=== PATIENT | female | born 1995 | race Caucasian/White ===

== ENCOUNTER 2016-04-01 20:38 | Observation (INO) ==
[2016-04-01 21:13] LABS: Bilirubin,Urine Negative (Negative); Blood,Urine Small (Negative); Clarity,Urine Clear (Clear); Color,Urine Yellow (Yellow); Glucose,Urine (UA) Normal (Normal); Ketones,Urine Negative (Negative); Leukocyte Esterase,Urine Trace (Negative); Nitrite,Urine Negative (Negative); Protein,Urine Trace mg/dL (Neg-Trace); Specific Gravity,Urine 1.024 (1.010-1.025); Urobilinogen,Urine Normal (Normal)
[2016-04-01 21:16] LABS: Bacteria,Urine Few per hpf (None-Few); Hyaline Casts,Urine None Seen per lpf (None-Few); Squamous Epithelial Cell,Urine Many per lpf (None-Few)
--- NOTE | 2016-04-01 21:19 | OB/GYN Progress Note ---
Date of Encounter: 04/01/16 Time of Encounter: 21:17 - Assessment and Plan (1) Low back pain during in second trimester Current Visit: Yes Status: Acute History and exam suggestive of musculoskeletal origin low back pain. Conservative treatment at this time including OMT. Lumbar roll, myofascial, and muscle energy. Improvement of symptoms and improved range of motion. Recommend muscle exercises and stretches. Topical pain relievers; to avoid otc with aspirin and nsaids. Heat/warm pads. (2) 26 weeks gestation of Current Visit: Yes Status: Acute Patient is 26.2 weeks gestation with no complications. Urine negative for UTI. Vitals stable. No contractions. No active labor. Subjective - Subjective Principal diagnosis: lower abd pain and low back pain Interval history: Ms. Medel is a 20 year old female at 26.2 weeks with no additional past medical or surgical history who presents with complaint of constant achy 10 /10 RLQ pain that radiates to her lower back that started last evening. Patient reports she was walking up stairs when she suddenly developed lower abdominal pain and back pain resulting in her unable to stand up straight. She laid down to see if it would help but was unable to lay down flat. Patient also reports some burning from her lower abdomen particularly on the right, down the inside of her right thigh and tingling down to her toes. Patient does report increased urination last night and one episode of urinary incontinence without sensation of needing to urinate. Patient reports urine has been normal color and smell. Denies fecal incontinence. Denies fevers, chills, sweats, nausea, vomiting, chest pain, shortness of breath, changes in bowels, and weakness. Reports some vaginal mucus discharge, but also reports recent sexual intercourse. Denies vaginal bleeding or significant fluid. Denies contractions. Reports occasional movement. Antepartum ROS: movement normal, no loss of fluid, no vaginal bleeding, no contractions Objective - Vital Signs Vital Signs: Intake and Output 04/01/16 04/01/16 04/01/16 07:59 15:59 23:59 Other: Weight 98.883 kg Patient Weight 04/01/16 23:59 Weight 98.883 kg - Exam FHR: auscultation normal Abdomen: Present: normal appearance, soft, gravid, other (striae) Comments: Neuro: Alert and oriented x3, no acute distress, CN 2-12 grossly intact, muscle strength normal bilaterally, normal sensation bilaterally, dtr patella and achilles 2/4 bilaterally, babinski negative, positive straight leg raise on R at 30 degrees, normal straight leg raise on L. Heart: Regular rate and rhythm no murmurs Lungs: clear to auscultation bilaterally no wheezes rhonchi or rales Abdomen: soft, nontender, gravidad, striae noted bowel sounds normal
== END 2016-04-01 22:27 | disposition home or self-care (01) ==
LOC: 1NENULAB
PROVIDERS: ADMIT Obstetrics & Gynecology; ATTEND Obstetrics & Gynecology

== ENCOUNTER 2016-04-22 16:19 | Observation (INO) ==
--- NOTE | 2016-04-22 16:42 | OB/GYN Progress Note ---
Date of Encounter: 04/22/16 Time of Encounter: 16:40 - Assessment and Plan (1) 29 weeks gestation of Status: Acute Patient is 29 weeks gestation. Reports no loss of fluids and no contracts at this time. Cervix is closed and thick. 1. monitoring- reactive NST (2) Vaginal discharge during Status: Acute Patient reports vaginal discharge with foul smell. Speculum exam showed white creamy discharge. 1. Vaginosis panel pending 2. Urine analysis pending Anticipate discharge home with treatment if infection identified. Qualifiers: Trimester: second trimester Qualified Code(s): O26.892 - Other specified related conditions, second trimester; N89.8 - Other specified noninflammatory disorders of vagina (3) Low back pain during in second trimester Status: Acute Patient with continued low back pain, worse in the last 24 hours. She has been seen here previously with low back pain. FFN collected and pending. SVE closed and thick. Plan for discharge home with PTL precautions. Subjective - Subjective Principal diagnosis: 29 weeks gestation with pelvic pain and foul smelling discharge Interval history: Ms Medel is a 20yo female at 29 weeks gestation who presents complaining of pelvic pain and vaginal discharge. Patient reports that she has had hip and low back pain for weeks but that it got significantly worse last night and she was unable to sit up or turn over in bed because of the pain. She reports that pain is constant and worse with sitting up or moving. Patient also reports yellow vaginal discharge that she has had for a while but just today she noticed a foul smelling odor. She reports that she was diagnosed with a yeast infection a week ago and she took to doses of the prescribed cream before stopping because her itching stopped. She reports good movement. Reports constant pain but denies any contractions or fluid loss. She also repors cough, runny nose, frequent headaches, SOB with walking and constipation. Patient denies fever/chills, vision changes, chest pain or palpitations, dysuria or increased urinary frequency. On exam, patient is awake and alert. She has an old wound from an infected belly button ring that was previously MRSA positive - no active drainage. Speculum exam done and thick , creamy discharge noted. Patient reports no complications with previous . Baby was a full term , vaginal delivery. I examined this patient and my medical decision-making was reviewed with the HOCKEY SCOUT/PA/Advanced Practice Nurse/Resident Physician. I agree with the documented findings, disposition and treatment plan as described except to the extent set forth below. Antepartum ROS: movement normal, no loss of fluid, no vaginal bleeding, no contractions Objective - Exam FHR: category 1 FHR comments: NST reactive Auscultation: bilateral: normal Abdomen: Present: soft, gravid Uterus: Present: normal. Absent: tenderness Cervical dilation: closed Cervix effacement: thick Comments: Old wound from infected belly button ring, formerly MRSA positive. No erythema or active drainage.
[2016-04-22 16:58] LABS: Bilirubin,Urine Negative (Negative); Blood,Urine Negative (Negative); Clarity,Urine Clear (Clear); Color,Urine Yellow (Yellow); Glucose,Urine (UA) 100 mg/dL (Normal); Ketones,Urine Negative (Negative); Leukocyte Esterase,Urine Small (Negative); Nitrite,Urine Negative (Negative); PH,Urine 7.5 pH Units (5.0-8.0); Protein,Urine 30 mg/dL (Neg-Trace); Specific Gravity,Urine 1.025 (1.010-1.025); Urobilinogen,Urine Normal (Normal)
[2016-04-22 17:02] LABS: Bacteria,Urine Moderate per hpf (None-Few); Hyaline Casts,Urine None Seen per lpf (None-Few); Squamous Epithelial Cell,Urine Many per lpf (None-Few); WBC,Urine 15-30 per hpf (0-3)
[2016-04-22 17:44] LABS: Candida DNA ***DETECTED*** (Not Detect); Gardnerella DNA Not Detected (Not Detect); Trichomonas DNA Not Detected (Not Detect)
== END 2016-04-22 18:24 | disposition home or self-care (01) ==
LOC: 1NENULAB
PROVIDERS: ADMIT Obstetrics & Gynecology; ATTEND Obstetrics & Gynecology

== ENCOUNTER 2016-05-08 09:53 | Observation (INO) ==
[2016-05-08 10:43] LABS: Bilirubin,Urine Negative (Negative); Blood,Urine Large (Negative); Clarity,Urine Cloudy (Clear); Color,Urine Dark Yellow (Yellow); Glucose,Urine (UA) Normal (Normal); Ketones,Urine Negative (Negative); Leukocyte Esterase,Urine Moderate (Negative); Nitrite,Urine Negative (Negative); PH,Urine 5.5 pH Units (5.0-8.0); Protein,Urine 30 mg/dL (Neg-Trace); Specific Gravity,Urine > 1.030 (1.010-1.025); Urobilinogen,Urine Normal (Normal)
[2016-05-08 10:45] LABS: Hyaline Casts,Urine None Seen per lpf (None-Few); Squamous Epithelial Cell,Urine Many per lpf (None-Few); WBC,Urine 15-30 per hpf (0-3)
[2016-05-08 11:03] LABS: Bacteria,Urine Few per hpf (None-Few); Calcium Oxalate Crystals,Urine Present
--- NOTE | 2016-05-08 13:12 | OB/GYN Progress Note ---
Date of Encounter: 05/08/16 Time of Encounter: 13:10 - Assessment and Plan (1) 32 weeks gestation of Current Visit: Yes Status: Acute (2) NST (non-stress test) reactive Current Visit: Yes Status: Acute (3) Urinary frequency Current Visit: Yes Status: Acute Await culture results. (4) Vaginal discharge during Current Visit: No Status: Acute Pt denies s/sx infection or loss of amniotic fluid. Suspect physiologic discharge. Discharge home. Qualifiers: Trimester: third trimester Qualified Code(s): O26.893 - Other specified related conditions, third trimester; N89.8 - Other specified noninflammatory disorders of vagina Subjective - Subjective Interval history: 20 year-old presenting at 32 weeks with c/o tachycardia and sweating after drinking glucola for her 3 hour GTT. She also reports urinary frequency and thick vaginal discharge. She denies itching, burning, bleeding, or loss of fluid. Good FM. No contractions. Antepartum ROS: movement normal, no loss of fluid, no vaginal bleeding, no contractions Objective - Vital Signs Vital Signs: Intake and Output 05/07/16 05/08/16 05/08/16 23:59 07:59 15:59 Other: Weight 101.1 kg Patient Weight 05/08/16 23:59 Weight 101.1 kg - Exam FHR: category 1 FHR comments: 135BPM reactive NST Auscultation: bilateral: normal Abdomen: Present: soft, gravid. Absent: tenderness Cervical dilation: closed/thick/high Comments: Pulse normal in L&D triage. - Labs Labs: Abnormal lab results Urine Clarity Cloudy (Clear) A 05/08/16 10:30 Ur Specific [place] > 1.030 (1.010-1.025) H 05/08/16 10:30 Urine Protein 30 mg/dL (Neg-Trace) H 05/08/16 10:30 Urine Blood Large (Negative) H 05/08/16 10:30 Ur Leukocyte Esterase Moderate (Negative) H 05/08/16 10:30 Urine Microscopic RBC 5-15 per hpf (0-3) H 05/08/16 10:30 Urine Microscopic WBC 15-30 per hpf (0-3) H 05/08/16 10:30 Ur Squamous Epith Cells Many per lpf (None-Few) H 05/08/16 10:30 Ur Culture Indicated? YES (NO) A 05/08/16 10:30
== END 2016-05-08 12:10 | disposition home or self-care (01) ==
LOC: 1NENULAB
PROVIDERS: ADMIT Obstetrics & Gynecology; ATTEND Obstetrics & Gynecology

== ENCOUNTER 2016-06-09 12:02 | Observation (INO) ==
[2016-06-09 12:56] LABS: Bilirubin,Urine Negative (Negative); Blood,Urine Negative (Negative); Clarity,Urine Cloudy (Clear); Color,Urine Dark Yellow (Yellow); Glucose,Urine (UA) Normal (Normal); Ketones,Urine Negative (Negative); Leukocyte Esterase,Urine Moderate (Negative); Nitrite,Urine Negative (Negative); Protein,Urine Trace mg/dL (Neg-Trace); Urobilinogen,Urine Normal (Normal)
[2016-06-09 12:57] LABS: Bacteria,Urine Few per hpf (None-Few); Hyaline Casts,Urine None Seen per lpf (None-Few); Squamous Epithelial Cell,Urine Many per lpf (None-Few); WBC,Urine 15-30 per hpf (0-3)
[2016-06-09 13:19] LABS: Calcium Oxalate Crystals,Urine Present
--- NOTE | 2016-06-09 14:00 | OB/GYN Progress Note ---
Date of Encounter: 06/09/16 Time of Encounter: 13:53 - Assessment and Plan (1) Nausea & vomiting Current Visit: Yes Status: Acute Pt has zantac and zofran rx at home and is able to tolerate PO fluids while in triage. She reports dizziness improved with hydration. Qualifiers: Vomiting type: unspecified Vomiting Intractability: non-intractable Qualified Code(s): R11.2 - Nausea with vomiting, unspecified (2) Cramping affecting , antepartum Current Visit: Yes Status: Acute ft/50/-2, one contraction noted on toco. Discharge home with precautions. (3) 36 weeks gestation of Current Visit: Yes Status: Acute (4) NST (non-stress test) reactive Current Visit: No Status: Acute Subjective - Subjective Interval history: 20 year-old presenting at 36w1d via ambulance for nausea/vomiting, headache , dizziness, cramping, and pressure. She denies LOF, VB, or regular contractions. Good FM. She reports she has had a headache for the last two months that has not changed. She has had the nausea and vomiting for the last 2 days but reports that she thinks it may be due to her heartburn since she ran out of her Zantac a week ago and hasn't gotten her refill yet. She reports vomiting twice today. She does have zofran at home. Antepartum ROS: movement normal, contractions, no loss of fluid, no vaginal bleeding Objective - Vital Signs Vital Signs: Intake and Output 06/08/16 06/09/16 06/09/16 23:59 07:59 15:59 Other: Weight 100.8 kg Patient Weight 06/09/16 23:59 Weight 100.8 kg - Exam FHR: category 1 FHR comments: NST reactive Auscultation: bilateral: normal Abdomen: Present: soft, gravid. Absent: tenderness Uterus: Absent: tenderness Cervical dilation: FT/50/-2 - Labs Labs: Abnormal lab results Urine Clarity Cloudy (Clear) A 06/09/16 12:40 Ur Leukocyte Esterase Moderate (Negative) H 06/09/16 12:40 Urine Microscopic RBC 5-15 per hpf (0-3) H 06/09/16 12:40 Urine Microscopic WBC 15-30 per hpf (0-3) H 06/09/16 12:40 Ur Squamous Epith Cells Many per lpf (None-Few) H 06/09/16 12:40 Ur Culture Indicated? YES (NO) A 06/09/16 12:40
== END 2016-06-09 14:10 | disposition home or self-care (01) ==
LOC: 1NENULAB
PROVIDERS: ADMIT Obstetrics & Gynecology; ATTEND Obstetrics & Gynecology

== ENCOUNTER 2016-06-18 22:15 | Observation (INO) ==
--- NOTE | 2016-06-18 22:37 | OB/GYN Progress Note ---
Date of Encounter: 06/19/16 Time of Encounter: 22:35 - Assessment and Plan (1) 37 weeks gestation of Current Visit: Yes Status: Acute (2) Low back pain during in second trimester Current Visit: No Status: Acute (3) Vaginal discharge during Current Visit: No Status: Acute She reports week of intermittent gushes of clear fluid associated with suprapubic pressure and vaginal discharge. Furthermore, patient reports that she has had some spotting when she wipe after urinating. Symptoms may be due to urinary tract infection versus BV versus fungal infection. Patient has reassuring NST with heart rates in the 130s. Fritz Braxton. Discharge likely related to recent vaginal intercourse. Vaginosis panel negative. Urinary analysis culture pending will contact patient with results and abx if indicated. Plan discharge home. Return precautions given. Patient expressed understanding. Qualifiers: Trimester: third trimester Qualified Code(s): O26.893 - Other specified related conditions, third trimester; N89.8 - Other specified noninflammatory disorders of vagina (4) NST (non-stress test) reactive Current Visit: No Status: Acute With heart rate in the 130s (5) Nausea & vomiting Current Visit: No Status: Acute Continue with vitamin B6 and Zofran at home. Qualifiers: Vomiting type: unspecified Vomiting Intractability: non-intractable Qualified Code(s): R11.2 - Nausea with vomiting, unspecified Subjective - Subjective Principal diagnosis: vaginal discharge Interval history: Patient is a 20-year-old female at 37 weeks and 3 days with a past medical history of attention deficit hyperactivity disorder, sleep disturbance, depression, headaches, history of MRSA infection, gastroesophageal reflux, who presents today for vaginal discharge. Patient describes that over the past week she has had intermittent fluid leakage into her underwear described as clear fluid "possibly urine "however today she had a large gush of fluid approximately 1 hour prior to arrival associated with contractions and nausea. Patient describes that her last meal was proximally 1 hour prior to arrival she also states that she has had decreased movements however she has been feeling baby all day but she has not been keeping counts so is unsure if she is having more than 10 and hour. Patient was last seen by Dr. Perez on 05/12/16 for nausea and vomiting and Fritz Braxton contractions was prescribed vitamin B6 the patient has been taking this for nausea with minimal relief of symptoms. Patient admits: Mid to low back pain consistent with her prior contractions from previous delivery patient states that she had "back labor " she has been experiencing intermittent cramping that wraps around her belly described as low squeezing pressure associated with pelvic pressure/suprapubic pressure and vaginal discharge. Last sexual intercourse was last night. Patient is scheduled for induction on 06/29/16 at 8 AM. Patient denies: Fever, chills, sweats, abdominal pain or tenderness, abdominal trauma, STI, PORTFOLIO ANALYST history: Last Pap smear in 12/09/2010 was negative. No history of abnormal Paps. Menarche age of onset 12. Last menstrual period beginning of September 2015 Total pregnancies to Total living children 1 #, 39 weeks, male, 7 lbs. 13 oz. spontaneous vaginal delivery complications. Medications: Patient is currently taking ranitidine and vitamin B 6. No known drug allergies. 12/23/15 Labs: Blood type a antibody negative GBS positive Rubella IgG antibody positive Hepatitis B surface antigen nonreactive Treponema pallidum negative Varicella IgG antibody positive Cystic fibrosis panel was negative HIV negative Antepartum ROS: loss of fluid, movement normal, contractions, no vaginal bleeding Objective - Exam FHR: auscultation normal FHR comments: 130 Auscultation: bilateral: normal Abdomen: Present: normal appearance, soft, gravid Uterus: Present: normal Cervical dilation: 3 Cervix effacement: 70 Comments: Per nurse's exam
[2016-06-18 23:30] LABS: Bilirubin,Urine Negative (Negative); Blood,Urine Negative (Negative); Clarity,Urine Cloudy (Clear); Color,Urine Yellow (Yellow); Glucose,Urine (UA) Normal (Normal); Ketones,Urine Trace mg/dL (Negative); Leukocyte Esterase,Urine Small (Negative); Nitrite,Urine Negative (Negative); Protein,Urine Negative (Neg-Trace); Specific Gravity,Urine 1.015 (1.010-1.025); Urobilinogen,Urine Normal (Normal)
[2016-06-18 23:32] LABS: Bacteria,Urine None Seen per hpf (None-Few); Hyaline Casts,Urine None Seen per lpf (None-Few); RBC,Urine 0-3 per hpf (0-3); Squamous Epithelial Cell,Urine Many per lpf (None-Few)
[2016-06-18 23:37] LABS: Candida DNA Not Detected (Not Detect); Gardnerella DNA Not Detected (Not Detect); Trichomonas DNA Not Detected (Not Detect)
--- NOTE | 2016-06-19 00:37 | Discharge Summary ---
Date of Encounter: 06/19/16 Time of Encounter: 00:40 - Discharge Diagnosis (1) 37 weeks gestation of Priority: Primary Status: Acute (2) Low back pain during in second trimester Priority: Secondary Status: Acute (3) Vaginal discharge during Priority: Primary Status: Acute Qualifiers: Trimester: third trimester Qualified Code(s): O26.893 - Other specified related conditions, third trimester; N89.8 - Other specified noninflammatory disorders of vagina (4) NST (non-stress test) reactive Priority: Secondary Status: Acute (5) Nausea & vomiting Priority: Secondary Status: Acute Qualifiers: Vomiting type: unspecified Vomiting Intractability: non-intractable Qualified Code(s): R11.2 - Nausea with vomiting, unspecified - Discharge Medications Home Medications: Caplet 1 tab PO DAILY 04/22/16 [History] Ranitidine HCl [Acid Commercial Real Estate Assistant] 150 mg PO PRN PRN 04/22/16 [History] Allergies/Adverse Reactions: Allergies No Known Allergies Allergy (Verified 05/08/16 10:31) Data Procedures and tests throughout hospitalization: Laboratory Tests 06/18/16 06/18/16 22:15 23:20 Urine Color Yellow Urine Clarity Cloudy A Urine pH 7.0 Ur Specific [place] 1.015 Urine Protein Negative Urine Glucose (UA) Normal Urine Ketones Trace H Urine Blood Negative Urine Nitrite Negative Urine Bilirubin Negative Urine Urobilinogen Normal Ur Leukocyte Esterase Small H Urine Microscopic RBC 0-3 Urine Microscopic WBC 5-15 H Ur Squamous Epith Cells Many H Urine Bacteria None Seen Hyaline Casts None Seen Urine Yeast Test Not Performed Ur Culture Indicated? YES A Jenelle species DNA Not Detected Gardnerella DNA Probe Not Detected Trichomonas DNA Probe Not Detected Labs on day of discharge: Labs from last 24 hours 06/18/16 06/18/16 23:20 22:15 Urine Color Yellow Urine Clarity Cloudy A Urine pH 7.0 Ur Specific [place] 1.015 Urine Protein Negative Urine Glucose (UA) Normal Urine Ketones Trace H Urine Blood Negative Urine Nitrite Negative Urine Bilirubin Negative Urine Urobilinogen Normal Ur Leukocyte Esterase Small H Urine Microscopic RBC 0-3 Urine Microscopic WBC 5-15 H Ur Squamous Epith Cells Many H Urine Bacteria None Seen Hyaline Casts None Seen Urine Yeast Test Not Performed Ur Culture Indicated? YES A Jenelle species DNA Not Detected Gardnerella DNA Probe Not Detected Trichomonas DNA Probe Not Detected Date of admission: 06/18/16 22:15 Primary care physician: Ana Discharging clinician: Adriano Morse Anticipated date of discharge: 06/19/16 - Patient Status Disposition: Home, Self-Care - Discharge Instructions Additional Instructions: LABOR AND DELIVERY DISCHARGE INSTRUCTIONS Signs and Symptoms to be Reported to your Doctor Immediately: * Sudden gush, continuous or intermittent lead of fluid from vagina (note the time of gush and color of fluid) * Onset of bright red vaginal bleeding with or without pain (if you had a vaginal exam during this visit you may notice some dark red spotting. This is normal.) * Contractions that are 5 minutes apart (from the beginning of one contraction to the beginning of the next) and last 45-60 seonds; contractions that you can no longer walk, talk or laugh through. * A change in the baby's activity. This could be an increase or decrease in activity. * Severe headache which does not go away with tylenol. * Sudden swelling in the face, hands, arms and/or legs. * Upper abdominal pain - sometimes associated with heartburn or nausea and is not relieved by Maalox, Mylanta or Tums. * Kick Counts __ One hour after a meal, lay down on one side in a quiet place. Count the number of time the baby moves during an hour. If less than 6 movements, notify your physician Diet: *Force fluids, 8 to 10 tall glasses of fluid per day - may include popsicles and jello *Limit caffeine - this includes chocolate, coffee, tea, any soft drink containing such as all annamarie, Héctor Yellow and Mountain Dew Hospital Course CLOTH CUTTING MACHINE OPERATOR Time Attestation: Total time spent providing and/or coordinating discharge services: Exam - Constitutional General appearance IM: A&O X 3 - Respiratory Respiratory exam: Present: CTAB - Cardiovascular Cardiovascular exam IM: Present: +S1, +S2 - GI/Abdominal GI/Abdominal exam IM: normal bowel sounds - Rectal Rectal exam: normal inspection - External exam: normal external exam - Extremities Exam Extremities exam IM: Present: normal capillary refill, warm, radial pulses palpable and symetrical. Absent: pedal edema - Neurological Exam Neurological exam: CN II-XII intact, reflexes normal, strengths equal and symetr throughout - VTE Reasons for not Prescribing Prophylaxis: Treatment not Indicated - Low risk for VTE
== END 2016-06-19 01:00 | disposition home or self-care (01) ==
LOC: 1NENULAB
PROVIDERS: ADMIT Obstetrics & Gynecology; ATTEND Obstetrics & Gynecology

== ENCOUNTER 2016-06-29 08:00 | Inpatient (IN) ==
[2016-06-29] MEDS ORDERED: Naloxone 0.4 MG/ML INJ IVP PRN (08:22)
[2016-06-29] MEDS ORDERED: Metoclopramide 10 MG/2 ML VIAL IVP PRN (08:22)
[2016-06-29] MEDS ORDERED: Famotidine 20 MG/2 ML VIAL IVP PRN (08:22)
[2016-06-29] MEDS ORDERED: Ondansetron 4 MG/2 ML VIAL IVP PRN (08:22)
[2016-06-29] MEDS ORDERED: Penicillin G Potassium 5,000,000 UNIT in D5% in Water (Mini-Bag+) 100 ML IVPB ONE (08:28)
--- NOTE | 2016-06-29 08:30 | OB/GYN History & Physical ---
Date of Encounter: 06/29/16 Time of Encounter: 08:29 Assessment and Plan (1) with 39 completed weeks gestation Current visit: Yes Status: Acute - x1 39w 0d Planned induction. (2) Elective induction of labor planned Current visit: Yes Status: Acute Planned induction. Patient desires epidural. Cervix 3/73%/-2 per attending exam. Unchanged from office exam 2 wks ago. Cytotec 25mg placed VG 09:20 GBS (+). PCN started 08:30. Tylenol 650mg PO Q6hr PRN SOUTH. Expectant management. May consider: cytotec VG and/or PO, pitocin, AROM. May consider pending response to labor. (3) and not yet delivered in third trimester Current visit: Yes Status: Acute Patient will be induced with Cytotec and anticipate vaginal delivery (4) Group beta Strep positive Current visit: Yes Status: Acute We will start penicillin 5 million units followed by 2.5 mg every 4 hours until delivery History of Present Illness Chief complaint: scheduled induction HPI: Ms. Medel is a 20 year old female presents from home for scheduled induction. - x1 39w 0d OB: Dr. Perez complications: high risk - teen Allerg: NKDA Meds: ranitidine, vit B6 PMH: ADHD, sleep disturbance, depression, SOUTH, GERD, hx MRSA Blood type A- GBS (+) Rubella IgG antibody (+) Varicella IgG antibody (+) Hep A Ab (-) 03/13/15 HbSAg (-) 12/23/15 Hep C Ab screen (-) 03/13/15 HSV (-) Treponema pallidum (-) 12/23/15 N. gonorrhoeae (-) 06/18/16 C. trach (-) 06/18/16 Candidia (-) 06/18/16 HIV (-) CF (-) Seen in labor & deliver 06/18/16 for false labor - dilation 3/effacement 70 per nurse exam. Marlon Perez's note Patient is a 20-year-old 2 para 1 at 39-0/7 weeks who presented for induction of labor seconds term . We will cervix with large for gestational age infant. Patient has had multiple complaints with the from back pain to inability to walk. Patient has been 3 cm for the past couple weeks did advise her when she got in the 39 week range we would induce her. Patient is GBS positive we will start her on penicillin and use Cytotec to get labor started. Past Med Surg Social Fam HX - Past Medical History Medical history: other Psychiatric history: no psych history - Past Surgical History Surgical History: no surgical history - Social History Smoking Status: Never smoker Smokeless Tobacco Status: No Alcohol use: none Drug use: none - Family History Mother Adopted: No Family Member Ethnicity: Non- Living Status: Still Living Hx Family Cardiac Disorders: No Hx Family Respiratory Disorders: No Hx Family Cancer: No Hx Family GI Disorders: No Hx Family Endocrine Disorder: No Hx Family Neuromuscular Disorders: No Hx Family Neurologic Disorders: No Hx Family HEENT Disorders: No Hx Family Autoimmune Disorders: No Medications and Allergies Caplet 1 tab PO DAILY 04/22/16 [History] Ranitidine HCl [Acid Concrete Spreader] 150 mg PO PRN PRN 04/22/16 [History] Allergies No Known Allergies Allergy (Verified 06/29/16 08:43) Review of System OB All systems PM: reviewed and no additional remarkable complaints except as stated - Constitutional Constitutional ROS IM: no fever(s), no lethargy, no malaise - Nose, mouth, and throat Nose, mouth and throat: headache(s), no nasal congestion, no sinus pressure - Cardiovascular Cardiovascular: no chest pain, no claudication, no dyspnea, no leg edema, no palpitations - Respiratory Respiratory: no cough, no wheezing - Gastrointestinal Gastrointestinal: no abdominal pain, no change in bowel habits, no heartburn, no nausea, no vomiting - Genitourinary Genitourinary: no flank pain, no vaginal discharge - Neurological Nerological: headache(s), no dizziness, no vertigo, no other visual disturbances Exam - Vital Signs Vital signs: vital signs stable and unremarkable. - Constitutional Constitutional: well developed, well nourished, no acute distress, average body habitus - HEENT HEENT: Normocephaly, Mucus Membranes Moist - Neck Neck exam: normal inspection - Lungs Respiratory exam: CTAB - Cardiovascular Cardiovascular exam: RRR, +S1, +S2 - Abdomen Abdomen: Present: bowel sounds normal, gravid, non tender. Absent: guarding noted - Extremities Extremities exam: normal capillary refill, radial pulses palpable and symetrical - Cervix Dilation: 3 (per attending) Effacement: 70 (per attending) Station: -2 (per attending) Results Result Diagrams: 06/29/16 08:55 All other labs normal. - VTE Reasons for not Prescribing Prophylaxis: Treatment not Indicated - Low risk for VTE - Attending Attestation I examined this patient and my medical decision-making was reviewed with the [place] PAINTER/PA/Advanced Practice Nurse/Resident Physician. I agree with the documented findings, disposition and treatment plan as described except to the extent set forth below.
[2016-06-29] MEDS: Ringers Solution, Lactated 1,000 ML IVC SCH ×2 (09:04→14:21)
[2016-06-29 09:13] LABS: Basophils % 0.2 %; Eosinophils # 0.1 K/mcL (0.0-0.6); Eosinophils % 0.6 %; Hematocrit 36.5 % (35.3-44.9); Hemoglobin 11.3 g/dL (11.5-15.4); Immature Granulocytes % 0.3 % (0-4); Lymphocytes # 2.4 K/mcL (0.6-4.6); Lymphocytes % 23.1 %; Mean Corpuscular Hemoglobin 23.9 pg (28.0-33.3); Mean Corpuscular Volume 77.3 fL (83.0-100.0); Mean Platelet Volume 11.3 fL (9.4-12.4); Monocytes # 0.7 K/mcL (0.0-1.3); Monocytes % 6.7 %; Platelet Count 304 K/mcL (140-400); Red Blood Count 4.72 M/mcL (3.82-4.97); Red Cell Distribution Width 13.5 % (11.5-14.5); Segmented Neutrophils % 69.1 %
[2016-06-29] MEDS ORDERED: miSOPROStol 25 MCG TABLET VG STA (09:13)
[2016-06-29] MEDS ORDERED: Acetaminophen 325 MG TABLET PO ONE (09:25)
[2016-06-29] MEDS ORDERED: Famotidine 20 MG/2 ML VIAL IVP ONE (09:53)
[2016-06-29] MEDS ORDERED: Penicillin G Potassium 2,500,000 UNIT in D5% in Water 100 ML IVPB SCH (12:00)
--- NOTE | 2016-06-29 13:03 | OB Labor Progress Note ---
Date of Encounter: 06/29/16 Time of Encounter: 13:00 Labor Progress Note - Subjective Subjective: patient states contractions are getting more uncomfortable and requesting her epidural, - Cervix Cervix: 4/80/-2 - Heart Tones Heart Tones: FHT's 140 reactive - [place]: contractions every 2 min - Plan Plan: will get her her epidural and anticipate
--- NOTE | 2016-06-29 13:17 | Anesthesia Evaluation PreOp ---
Date of Encounter: 06/29/16 Time of Encounter: 13:15 - Past History Planned Operation: kaelyn Cardiac History: Denies any Significant Hx Pulmonary History: Denies Any Significant HX UPHOLSTERY TRIMMER History: Denies Any Significant HX Other Medical History: GERD Anesthesia History: No Prior Anesthetic Complications, Past Anesthesia : Yes (39, ) Alcohol Use: none Drug use: none Medications and Allergies Caplet 1 tab PO DAILY 04/22/16 [History] Ranitidine HCl [Acid Truck Sales Representative] 150 mg PO PRN PRN 04/22/16 [History] Allergies No Known Allergies Allergy (Verified 06/29/16 08:43) - Meds/Allergy Pre-op Review Medications Reviewed: Yes Allergies Reviewed: Yes Beta Blockers on Current Med List: No Anesthesia Results - Labs 06/29/16 08:55 Anesthesia Exam O2 Sat Height 1.63 m Weight 103.7 kg bp 129/79 Height: 64 Weight: 101 - HEENT Pupil (Motor): Pupils equal Mallampati: II Teeth: Normal Oral Opening: Greater than 3 - UPHOLSTERY TRIMMER LOC: Oriented UPHOLSTERY TRIMMER Motor: Normal RUE, Normal LUE, Normal RLE, Normal LLE, Normal Face UPHOLSTERY TRIMMER Sensory: Normal: RUE, LUE, RLE, LLE, Face - Cardiac Rhythm: Regular Murmur: None JVD: No Carotid Bruit: No - Pulmonary Breath Sounds: bilateral Clear Respiratory Effort: Symmetrical Anesthesia Assess/Plan ASA Score: 2 Modified [place] Scale for Level of Consciousness: Cooperative, oriented, and tranquil Anesthetic Plan: Regional Autologous Blood: No Monitoring Plan: Standard Monitors
[2016-06-29] MEDS ORDERED: *HR* FentaNYL (PF) 100 MCG/2 ML VIAL ONE (13:23)
[2016-06-29] MEDS ORDERED: Epidural Premix (fent/bupiv) 110 ML EP ONE (13:23)
[2016-06-29] MEDS ORDERED: *HR* Ropivacaine/PF 0.2% 10 ML AMPUL ONE ×2 (13:23→18:31)
[2016-06-29] MEDS ORDERED: EPHEDrine 50 MG/ML VIAL IVP PRN (13:52)
[2016-06-29] MEDS ORDERED: *HR* Ropivacaine/PF 0.2% 10 ML AMPUL EP ONE (13:52)
[2016-06-29] MEDS ORDERED: *HR* FentaNYL (PF) 100 MCG/2 ML VIAL EP ONE (13:52)
--- NOTE | 2016-06-29 13:58 | Anesthesia Procedures ---
Date of Encounter: 06/29/16 Time of Encounter: 13:30 Procedures: Anesthesia - Epidural/Spinal Patient ID/Chart reviewed: Yes Patient examined: Yes OB Eval: : 2 OB Eval: Hx Para: 1 OB Eval: Dilated at (cm): 3 OB Eval: Contractions: Non-stressed pattern Consent Obtained: Yes Supplemental Oxygen: None/Room Air Site Prep: Aseptic Technique, 0.5% Chlorhexidine/Alcohol Patient position: upright Local Anesthetic: Lidocaine 1% Amount of Local Anesthetic used: 3 Touhy Needle Gauge: 18 Touhy Needle Depth (cm): 7 Catheter Depth at Skin (cm): 12 Test Dose (1.5% Lido + Epi): Volume given (mls): 3 Test Dose Result: Negative Loading Dose: 0.25% Marcaine (mls): 6 Loading Dose: Fentanyl (mcg): 100 Loading Dose: Other: 2ml nss Loading Dose Administered: Thru Touhy Needle Infusion Med: 0.125% Bupivacaine w/ 2 mcg/ml Fentanyl Infusion Rate (mls/hr): [address]: Tegaderm Interspace Used: L2-L3 Loss of Resistance (CHRISTY): Yes Blood: No CSF: No Paresthesia: No Procedure: strict asepsis, no change in fhr
[2016-06-29] MEDS ORDERED: Epidural Premix (fent/bupiv) 110 ML EP SCH ×2 (14:00→14:15)
--- NOTE | 2016-06-29 14:56 | OB Labor Progress Note ---
Date of Encounter: 06/29/16 Time of Encounter: 14:00 Labor Progress Note - Subjective Subjective: Pt comfortable with epidural. - Cervix Cervix: 4/80/-1 - Heart Tones Heart Tones: Category I - Ridott Ridott: 1-2 minutes - Interventions Interventions: AROM for moderate amount clear fluid - Plan Plan: Continue to monitor. Anticipate .
[2016-06-29] MEDS ORDERED: 0.9 % Sodium Chloride 1,000 ML ONE (17:10)
--- NOTE | 2016-06-29 17:16 | OB Labor Progress Note ---
Date of Encounter: 06/29/16 Time of Encounter: 17:15 Labor Progress Note - Subjective Subjective: The patient still comfortable with epidural beginning to feel a bit of pressure. Starting to have some variable decelerations - Cervix Cervix: 6/90/-2 - Heart Tones Heart Tones: heart tones 140s reactive. Variable Decelerations down to the 60s - [place]: IUPC placed we will start amnioinfusion 300 mL bolus then 125 an hour - Plan Plan: continue current care, amnioinfusion anticipate
[2016-06-29] MEDS ORDERED: Oxytocin 20 units/ LR 1000 mL 20 UNIT/1,000 ML BAG IVC ONE (17:31)
[2016-06-29] MEDS ORDERED: Lidocaine 1% 20 ML MDV ONE ×2 (18:21→19:13)
--- NOTE | 2016-06-29 19:53 | OB/GYN Procedure Note ---
Delivery - Delivery Date: 06/29/16 Provider: Faheem Perez Intrapartum events: none Delivery induction: misoprostol Delivery augmentation: rupture of membranes Estimated Blood Loss: 200 - Infant (s) A Infant Delivery Date: 06/29/16 Delivery Time: : Presentation: vertex Position: INGRID Gender: Female Viability: Viable Pounds: 9 Ounces: 0 Weight Gram: 4.075 kg at 1 minute: 8 at 5 mins: 9 Shoulder Dystocia: not encountered Specimens collected: cord blood Cord: 3 umbilical vessels - Repair Laceration Description: Periurethral (bilateral), Perineal - 2nd Degree - Complications Delivery complications: none Delivery comments: Patient is a 20-year-old 2 para 1 at 39-0/7 weeks she presented for induction of labor secondary to . We will cervix and large for gestational age infant. Patient was 3 cm in the office and had an ultrasound which placed the baby an 8 pound range. Recommend induction at 39 weeks when favorable she is having multiple complaints of back pain and pelvic pain and multiple visits to labor and delivery over the past month. Patient was brought to labor and delivery where she was noted to be 3 cm she was given Cytotec vaginally then artificially ruptured after her Morgan catheter when she was 4-5 cm. Patient progressed appropriately and became complete and pushed for approximately 15-20 minutes and delivered a viable female infant in left occiput anterior presentation at 1917. There was no nuchal cord, no meconium, was bulb suctioned on the abdomen. Apgars were 8 at 1 minute, 9 at 5 minutes, infant weight was 9 lbs. 0 oz. Placenta was then spontaneously 3 vessel cord, clinical coder Dr. Perez, process assistant Dr hogan PGY1, anesthesia epidural, estimated blood loss 2 mL. Patient had a second-degree periurethral and bilateral periurethral. 3-0 Vicryl and 4-0 Vicryl was used to get hemostasis under control. Patient tolerated the delivery well she will be observed 2 hours before being taken floor. - Disposition Mom disposition: stable in LDR [place] disposition: stable in LDR
[2016-06-29] MEDS ORDERED: Measles/Mumps/Rubella Vacc 0.5 ML VIAL SQ PRN (21:36)
[2016-06-29] MEDS ORDERED: Oxytocin 20 units/ LR 1000 mL 20 UNIT/1,000 ML BAG IVC SCH (21:36)
[2016-06-29] MEDS ORDERED: Famotidine 20 MG TABLET PO PRN (21:36)
[2016-06-29] MEDS ORDERED: Acetaminophen 325 MG TABLET PO PRN (21:36)
[2016-06-29] MEDS: Ibuprofen 600 MG TABLET PO PRN (22:49)
[2016-06-30] MEDS: *HR* HYDROcodone/Acet 5/325 mg TABLET PO PRN ×2 (04:00→09:48)
[2016-06-30 05:16] LABS: Basophils % 0.2 %; Eosinophils % 0.3 %; Hematocrit 31.3 % (35.3-44.9); Hemoglobin 10.1 g/dL (11.5-15.4); Immature Granulocytes % 0.5 % (0-4); Lymphocytes # 2.3 K/mcL (0.6-4.6); Lymphocytes % 16.4 %; Mean Corpuscular HGB Conc 32.3 g/dL (31.6-35.5); Mean Corpuscular Hemoglobin 24.8 pg (28.0-33.3); Mean Corpuscular Volume 76.9 fL (83.0-100.0); Mean Platelet Volume 11.6 fL (9.4-12.4); Monocytes # 1.1 K/mcL (0.0-1.3); Neutrophils # 10.5 K/mcL (1.6-8.9); Platelet Count 234 K/mcL (140-400); Red Blood Count 4.07 M/mcL (3.82-4.97); Red Cell Distribution Width 13.5 % (11.5-14.5); Segmented Neutrophils % 74.6 %
--- NOTE | 2016-06-30 07:35 | OB/GYN Progress Note ---
Date of Encounter: 06/30/16 Time of Encounter: 07:33 - Assessment and Plan (1) Vaginal delivery Current Visit: Yes Status: Acute Pt doing well. Up and ambulating. Pain well managed on PO pain medication. Continue current management. Subjective - Subjective Patient reports: appetite normal, voiding normally, pain well controlled, ambulating normally Reading: doing well Objective - Latest Vital Signs Latest vital signs: Vital Signs Temp Pulse Resp BP Pulse Ox 06/30/16 04:06 16 06/30/16 03:45 98.0 F 61 16 110/69 98 06/29/16 23:40 98.9 F 77 16 105/67 97 06/29/16 22:40 98.4 F 81 16 124/75 98 06/29/16 21:40 98.4 F 91 16 110/69 97 Intake and Output 06/29/16 06/29/16 06/30/16 15:59 23:59 07:59 Intake Total 1000 / 1000 650 / 650 Output Total 1150 / 1150 200 / 200 Balance 1000 / 1000 -1150 / -1150 450 / 450 Intake: IV Fluids 1000 / 1000 250 / 250 Pitocin 20 unit In 1,000 250 / 250 ml @ 125 mls/hr IVC .Q8H [facility] Rx#:[id number] Lactated Ringers 1,000 ML 1000 / 1000 @ 125 mls/hr IVC .Q8H [facility] Rx#:[id number] Pfizerpen 5,000,000 UNIT 0 / 0 In Dextrose 5% (Minibag+) 100 ML 100 ML @ 100 mls/ hr IVPB ONCE ONE Rx#: [id number] Oral 400 / 400 Output: Urine 650 / 650 200 / 200 Estimated Blood Loss 200 / 200 Catheter 300 / 300 Other: # Voids 1 Weight 103.7 kg 97.7 kg 100.2 kg Patient Weight 06/30/16 23:59 Weight 100.2 kg - Exam Lungs: bilateral: normal Chest: Normal S1, Normal S2 Extremities: Present: normal, tenderness Abdomen: Present: normal appearance, soft Uterus: Present: firm Uterus Position: Midline - Labs Labs: Laboratory Results - last 24 hr 06/29/16 06/29/16 06/30/16 08:40 08:55 05:03 WBC 10.2 14.0 H RBC 4.72 4.07 Hgb 11.3 L 10.1 L Hct 36.5 31.3 L MCV 77.3 L 76.9 L MCH 23.9 L 24.8 L MCHC 31.0 L 32.3 RDW 13.5 13.5 Plt Count 304 234 MPV 11.3 11.6 Immature Gran % 0.3 0.5 Seg Neutrophils % 69.1 74.6 Lymphocytes % 23.1 16.4 Monocytes % 6.7 8.0 Eosinophils % 0.6 0.3 Basophils % 0.2 0.2 Neutrophils # 7.0 10.5 H Lymphocytes # 2.4 2.3 Monocytes # 0.7 1.1 Eosinophils # 0.1 0.0 Basophils # 0.0 0.0 Specimen Rejected Volume
[2016-06-30] MEDS: Ibuprofen 600 MG TABLET PO PRN (07:54)
[2016-06-30 08:16] VITALS: BP 116/74
[2016-06-30] MEDS ORDERED: NON-FORMULARY MEDICATION 1 EACH EACH (Prenatal Caplet 1 TAB) PO SCH (09:00)
[2016-06-30] MEDS ORDERED: Prenatal Vit/FA 1 EACH TABLET PO SCH (09:00)
--- NOTE | 2016-06-30 10:17 | Discharge Summary ---
Date of Encounter: 06/30/16 Time of Encounter: 10:15 - Discharge Diagnosis (1) Vaginal delivery Priority: Primary Status: Acute Comments: Pt meeting milestones and desires discharge. - Discharge Medications Prescriptions: Ibuprofen [Motrin] 600 mg PO Q6HR PRN #60 tablet PRN Reason: Cramping Docusate [Colace] 100 mg PO BID #60 capsule Ferrous Sulfate 325 mg PO DAILY #60 tablet Home Medications: Caplet 1 tab PO DAILY 04/22/16 [History] Ranitidine HCl [Acid Edge Beader] 150 mg PO PRN PRN 04/22/16 [History] Acetaminophen [Tylenol] 650 mg PO Q6HR PRN #0 tablet 06/30/16 [Rx] Docusate [Colace] 100 mg PO BID #60 capsule 06/30/16 [Rx] Ferrous Sulfate 325 mg PO DAILY #60 tablet 06/30/16 [Rx] Ibuprofen [Motrin] 600 mg PO Q6HR PRN #60 tablet 06/30/16 [Rx] Allergies/Adverse Reactions: Allergies No Known Allergies Allergy (Verified 06/29/16 08:43) Data Procedures and tests throughout hospitalization: Laboratory Tests 06/29/16 06/29/16 06/30/16 08:40 08:55 05:03 WBC 10.2 14.0 H RBC 4.72 4.07 Hgb 11.3 L 10.1 L Hct 36.5 31.3 L MCV 77.3 L 76.9 L MCH 23.9 L 24.8 L MCHC 31.0 L 32.3 RDW 13.5 13.5 Plt Count 304 234 MPV 11.3 11.6 Immature Gran % 0.3 0.5 Seg Neutrophils % 69.1 74.6 Lymphocytes % 23.1 16.4 Monocytes % 6.7 8.0 Eosinophils % 0.6 0.3 Basophils % 0.2 0.2 Neutrophils # 7.0 10.5 H Lymphocytes # 2.4 2.3 Monocytes # 0.7 1.1 Eosinophils # 0.1 0.0 Basophils # 0.0 0.0 Specimen Rejected Volume Labs on day of discharge: Labs from last 24 hours 06/30/16 05:03 WBC 14.0 H RBC 4.07 Hgb 10.1 L Hct 31.3 L MCV 76.9 L MCH 24.8 L MCHC 32.3 RDW 13.5 Plt Count 234 MPV 11.6 Immature Gran % 0.5 Seg Neutrophils % 74.6 Lymphocytes % 16.4 Monocytes % 8.0 Eosinophils % 0.3 Basophils % 0.2 Neutrophils # 10.5 H Lymphocytes # 2.3 Monocytes # 1.1 Eosinophils # 0.0 Basophils # 0.0 Date of admission: 06/29/16 08:09 Primary care physician: PCP NO Consults: 06/29/16 21:36 Consult to Hospitality Host [CONS] Routine Comment: Vaginal delivery, consult needed Discharging clinician: Adriana Capps Anticipated date of discharge: 06/30/16 - Patient Status Disposition: Home, Self-Care Condition: Good Functional capacity at discharge: independent ambulation Overall status at discharge: patient is back to baseline - Discharge Instructions Follow Up With: NO,PCP [Primary Care Provider] - Faheem Perez, [Partnered Physician] - - Diet and Activity Activity: resume usual activities as tolerated Diet: regular diet Hospital Course Reason for admission: induction of labor, IUP at term Delivery: Laceration: 2nd degree, other (bilateral periuretheral ) Other procedures: none complications: none Discharge diagnosis: IUP at term delivered baby: female Hospital course: Delivery - Delivery Date: 06/29/16 Provider: Faheem Perez Intrapartum events: none Delivery induction: misoprostol Delivery augmentation: rupture of membranes Estimated Blood Loss: 200 - Infant (s) A Delivery Date: 06/29/16 Delivery Time: 19:17 Presentation: vertex Position: INGRID Gender: Female Viability: Viable Pounds: 9 Ounces: 0 Weight Gram: 4.075 kg at 1 minute: 8 at 5 mins: 9 Shoulder Dystocia: not encountered Specimens collected: cord blood Cord: 3 umbilical vessels - Repair Laceration Description: Periurethral (bilateral), Perineal - 2nd Degree - Complications Delivery complications: none Delivery comments: Patient is a 20-year-old 2 para 1 at 39-0/7 weeks she presented for induction of labor secondary to . We will cervix and large for gestational age . Patient was 3 cm in the office and had an ultrasound which placed the baby an 8 pound range. Recommend induction at 39 weeks when favorable she is having multiple complaints of back pain and pelvic pain and multiple visits to labor and delivery over the past month. Patient was brought to labor and delivery where she was noted to be 3 cm she was given Cytotec vaginally then artificially ruptured after her Morgan catheter when she was 4-5 cm. Patient progressed appropriately and became complete and pushed for approximately 15-20 minutes and delivered a viable female infant in left occiput anterior presentation at 1917. There was no nuchal cord, no meconium, was bulb suctioned on the abdomen. Apgars were 8 at 1 minute, 9 at 5 minutes, infant weight was 9 lbs. 0 oz. Placenta was then spontaneously 3 vessel cord, sand miller Dr. Perez, visitor services information assistant Dr hogan PGY1, anesthesia epidural, estimated blood loss 2 mL. Patient had a second-degree periurethral and bilateral periurethral. 3-0 Vicryl and 4-0 Vicryl was used to get hemostasis under control. Patient tolerated the delivery well she will be observed 2 hours before being taken floor. - Disposition Mom disposition: stable in and appropriate for discharge Time Attestation: Total time spent providing and/or coordinating discharge services: Time Spent: Less than 30 minutes Exam - Constitutional Vitals: Temp Pulse Resp BP Pulse Ox 97.8 F 79 16 116/74 98 06/30/16 08:00 06/30/16 08:00 06/30/16 08:56 06/30/16 08:00 06/30/16 03:45 General appearance IM: A&O X 3 - Respiratory Respiratory exam: Present: CTAB - Cardiovascular Cardiovascular exam IM: Present: RRR, +S1, +S2 - GI/Abdominal GI/Abdominal exam IM: soft - Uterine Tone: Firm Uterus Position: Midline - Extremities Exam Extremities exam IM: Present: normal capillary refill, normal inspection - Neurological Exam Neurological exam: normal gait, oriented X3 - Psychiatric Additional comments: reports good mood.
== END 2016-06-30 12:37 | disposition home or self-care (01) | DRG 560 ==
LOC: 1NENULAB 08:09 → 1NENUOBS 21:36
PROVIDERS: ADMIT Obstetrics & Gynecology; ATTEND Obstetrics & Gynecology

== ENCOUNTER 2018-12-01 20:05 | Observation (INO) ==
[2018-12-01] MEDS ORDERED: 0.9 % Sodium Chloride 1,000 ML IVC ONE (20:32)
[2018-12-01] MEDS ORDERED: Ondansetron 4 MG/2 ML VIAL IVP ONE (20:35)
[2018-12-01 20:52] LABS: Bilirubin,Urine Small (Negative); Blood,Urine Negative (Negative); Clarity,Urine Clear (Clear); Color,Urine Dark Yellow (Yellow); Glucose,Urine (UA) Normal (Normal); Ketones,Urine 80 mg/dL (Negative); Leukocyte Esterase,Urine Small (Negative); Nitrite,Urine Negative (Negative); Protein,Urine Trace mg/dL (Neg-Trace); Specific Gravity,Urine 1.019 (1.010-1.025); Urobilinogen,Urine Normal (Normal)
[2018-12-01 20:53] LABS: Hyaline Casts,Urine None Seen per lpf (None-Few); Squamous Epithelial Cell,Urine Many per lpf (None-Few)
[2018-12-01 21:09] LABS: Bacteria,Urine Few per hpf (None-Few); Mucus,Urine Few (Few)
--- NOTE | 2018-12-01 22:15 | Emergency Department Note ---
Disposition Clinical Impression: Pyelonephritis Disposition: Admitted As Inpatient Condition: Good Time of Disposition: 00:30 General Adult HPI - General Chief complaint: ED Abdominal Pain Stated complaint: n/v right flank pain Time Seen by Provider: 12/01/18 20:15 Source: EMS Limitations: no limitations - History of Present Illness Pain Scale: 10 - Related Data Home Medications Medication Instructions Recorded Confirmed Amoxicillin [Amoxil] 500 mg PO BID 12/01/18 12/01/18 Multivitamin [Flintstones] 2 each PO DAILY 12/01/18 12/01/18 Previous Rx's Medication Instructions Recorded Acetaminophen [Tylenol] 975 mg PO Q6HR PRN tablet 12/02/18 Calcium Carbonate [Tums] 1,000 mg PO Q4HR PRN tab.chew 12/02/18 Ondansetron ODT [Zofran ODT] 4 mg SL Q6HR #30 tab.rapdis 12/02/18 Scopolamine Patch [Transderm-Scop] 1.5 mg TD Q72H #5 patch.td72 12/02/18 Allergies Allergy/AdvReac Type Severity Reaction Status Date / Time No Known Allergies Allergy Verified 12/01/18 21:42 Past Medical History - Past Medical History Medical history: Reports: no medical history Surgical history: Reports: no surgical history Psychiatric history: Reports: anxiety ELECTRICIAN WIRING history: Reports: no ELECTRICIAN WIRING history - Social History Smoking Status: Never smoker Smokeless Tobacco Status: No Alcohol use: Reports: none Drug use: Reports: none Physical Exam - General Limitations: no limitations General appearance: alert Course Vital Signs Temperature 98.8 F 12/01/18 20:11 Pulse Rate 101 12/01/18 20:11 Respiratory Rate 16 12/01/18 20:11 Blood Pressure 127/74 12/01/18 20:11 O2 Sat by Pulse Oximetry 99 12/01/18 20:11 Temperature 98.1 F 12/02/18 07:49 Pulse Rate 86 12/02/18 07:49 Respiratory Rate 14 12/02/18 07:49 Blood Pressure 101/60 12/02/18 07:49 O2 Sat by Pulse Oximetry 96 12/02/18 07:49 Oxygen Delivery Oxygen Delivery Room Air Medical Decision Making - Lab Data Result diagrams: 12/02/18 10:15 12/01/18 22:08 Lab Results 09/08/1412/01/18 12/01/18 Range/Units 20:38 22:08 22:08 WBC (4.3-11.1) K/mcL RBC (3.82-4.97) M/mcL Hgb (11.5-15.4) g/dL Hct (35.3-44.9) % MCV (83.0-100.0) fL MCH (28.0-33.3) pg MCHC (31.6-35.5) g/dL RDW (11.5-14.5) % Plt Count (140-400) K/mcL MPV (9.4-12.4) fL Immature Gran % (0-4) % Seg Neutrophils % % Lymphocytes % % Monocytes % % Eosinophils % % Basophils % % Neutrophils # (1.6-8.9) K/mcL Lymphocytes # (0.6-4.6) K/mcL Monocytes # (0.0-1.3) K/mcL Eosinophils # (0.0-0.6) K/mcL Basophils # (0.0-0.2) K/mcL Sodium (136-145) mEq/L Potassium (3.5-5.1) mEq/L Chloride (98-107) mEq/L Carbon Dioxide (23-29) mEq/L BUN (6-20) mg/dL Creatinine (0.60-1.20) mg/dL Est GFR ( Amer) (> 60) Est GFR (Non-Af Amer) (> 60) BUN/Creatinine Ratio (6-26) Glucose (70-105) mg/dL Calculated Osmolality (280-300) Calcium (8.6-10.3) mg/dL Total Bilirubin (0.3-1.0) mg/dL Direct Bilirubin (0.0-0.2) mg/dL Indirect Bilirubin (0.0-1.2) mg/dL AST (13-39) Units/L ALT (7-52) Units/L Alkaline Phosphatase (34-104) Units/L Troponin I < 0.03 (< 0.04) ng/mL Serum Total Protein (6.4-8.9) g/dL Albumin (3.5-5.7) g/dL Globulin (2.4-3.5) g/dL Albumin/Globulin Ratio (1.1-2.2) Lipase (11-82) Units/L Beta HCG, Quant [id number] H (Less than 5) mIU/mL Urine Color Dark Yellow (Yellow) Urine Clarity Clear (Clear) Urine pH 6.0 (5.0-8.0) pH Units Ur Specific [place] 1.019 (1.010-1.025) Urine Protein Trace (Neg-Trace) mg/dL Urine Glucose (UA) Normal (Normal) mg/dL Urine Ketones 80 H (Negative) mg/dL Urine Blood Negative (Negative) Urine Nitrite Negative (Negative) Urine Bilirubin Small H (Negative) Urine Urobilinogen Normal (Normal) mg/dL Ur Leukocyte Esterase Small H (Negative) Urine Microscopic WBC 3-5 H (0-3) per hpf Ur Squamous Epith Cells Many H (None-Few) per lpf Urine Bacteria Few (None-Few) per hpf Hyaline Casts None Seen (None-Few) per lpf Urine Mucus Few (Few) Ur Culture Indicated? YES A (NO) 12/01/18 12/01/18 12/01/18 Range/Units 22:08 22:08 22:08 WBC 13.0 H (4.3-11.1) K/mcL RBC 5.21 H (3.82-4.97) M/mcL Hgb 14.0 (11.5-15.4) g/dL Hct 42.7 (35.3-44.9) % MCV 82.0 L (83.0-100.0) fL MCH 26.9 L (28.0-33.3) pg MCHC 32.8 (31.6-35.5) g/dL RDW 12.7 (11.5-14.5) % Plt Count 339 (140-400) K/mcL MPV 10.3 (9.4-12.4) fL Immature Gran % 0.4 (0-4) % Seg Neutrophils % 83.4 % Lymphocytes % 9.9 % Monocytes % 5.8 % Eosinophils % 0.3 % Basophils % 0.2 % Neutrophils # 10.8 H (1.6-8.9) K/mcL Lymphocytes # 1.3 (0.6-4.6) K/mcL Monocytes # 0.8 (0.0-1.3) K/mcL Eosinophils # 0.0 (0.0-0.6) K/mcL Basophils # 0.0 (0.0-0.2) K/mcL Sodium 134 L (136-145) mEq/L Potassium 3.3 L (3.5-5.1) mEq/L Chloride 100 (98-107) mEq/L Carbon Dioxide 22 L (23-29) mEq/L BUN 7 (6-20) mg/dL Creatinine 0.50 L (0.60-1.20) mg/dL Est GFR ( Amer) > 60 (> 60) Est GFR (Non-Af Amer) > 60 (> 60) BUN/Creatinine Ratio 14 (6-26) Glucose 100 (70-105) mg/dL Calculated Osmolality 276 L (280-300) Calcium 9.4 (8.6-10.3) mg/dL Total Bilirubin 0.8 0.8 (0.3-1.0) mg/dL Direct Bilirubin 0.4 H (0.0-0.2) mg/dL Indirect Bilirubin 0.4 (0.0-1.2) mg/dL AST 45 H 44 H (13-39) Units/L ALT 90 H 88 H (7-52) Units/L Alkaline Phosphatase 66 65 (34-104) Units/L Troponin I (< 0.04) ng/mL Serum Total Protein 7.2 7.2 (6.4-8.9) g/dL Albumin 4.1 4.0 (3.5-5.7) g/dL Globulin 3.1 3.2 (2.4-3.5) g/dL Albumin/Globulin Ratio 1.3 1.3 (1.1-2.2) Lipase 7 L (11-82) Units/L Beta HCG, Quant (Less than 5) mIU/mL Urine Color (Yellow) Urine Clarity (Clear) Urine pH (5.0-8.0) pH Units Ur Specific [place] (1.010-1.025) Urine Protein (Neg-Trace) mg/dL Urine Glucose (UA) (Normal) mg/dL Urine Ketones (Negative) mg/dL Urine Blood (Negative) Urine Nitrite (Negative) Urine Bilirubin (Negative) Urine Urobilinogen (Normal) mg/dL Ur Leukocyte Esterase (Negative) Urine Microscopic WBC (0-3) per hpf Ur Squamous Epith Cells (None-Few) per lpf Urine Bacteria (None-Few) per hpf Hyaline Casts (None-Few) per lpf Urine Mucus (Few) Ur Culture Indicated? (NO) Attestation Statement - Attestation Attestation: I examined this patient and my medical decision-making was reviewed with the Resident Physician. I agree with the documented findings, disposition and treatment plan as described except to the extent set forth below. Patient [id number] female presents to emergency department with chief complaint of nausea and vomiting. The patient reports she is 11 weeks and has been treated for a urinary tract infection. The patient states she has been unable to keep anything down for the last 2 days unable take the antibiotic. Exam patient's awake alert no acute distress patient does have dry mucous membranes Medical decision management the patient will be evaluated for dehydration of patient will be hydrated in the emergency department and the patient will undergo further evaluation to determine whether the patient requires continual IV hydration and electrolyte replacement and IV antibiotics.
[2018-12-01 22:24] LABS: Basophils % 0.2 %; Eosinophils % 0.3 %; Hematocrit 42.7 % (35.3-44.9); Immature Granulocytes % 0.4 % (0-4); Lymphocytes # 1.3 K/mcL (0.6-4.6); Lymphocytes % 9.9 %; Mean Corpuscular HGB Conc 32.8 g/dL (31.6-35.5); Mean Corpuscular Hemoglobin 26.9 pg (28.0-33.3); Mean Platelet Volume 10.3 fL (9.4-12.4); Monocytes # 0.8 K/mcL (0.0-1.3); Monocytes % 5.8 %; Neutrophils # 10.8 K/mcL (1.6-8.9); Platelet Count 339 K/mcL (140-400); Red Blood Count 5.21 M/mcL (3.82-4.97); Red Cell Distribution Width 12.7 % (11.5-14.5); Segmented Neutrophils % 83.4 %
[2018-12-01 22:45] LABS: Albumin/Globulin Ratio 1.3 (1.1-2.2); Bilirubin,Direct 0.4 mg/dL (0.0-0.2); Bilirubin,Indirect 0.4 mg/dL (0.0-1.2); Bilirubin,Total 0.8 mg/dL (0.3-1.0); Globulin 3.2 g/dL (2.4-3.5); Total Protein 7.2 g/dL (6.4-8.9)
[2018-12-01 22:46] LABS: Alanine Aminotransferase 90 Units/L (7-52); Albumin 4.1 g/dL (3.5-5.7); Albumin/Globulin Ratio 1.3 (1.1-2.2); Alkaline Phosphatase 66 Units/L (34-104); Aspartate Amino Transferase 45 Units/L (13-39); BUN/Creatinine Ratio 14 (6-26); Bilirubin,Total 0.8 mg/dL (0.3-1.0); Blood Urea Nitrogen 7 mg/dL (6-20); Calcium 9.4 mg/dL (8.6-10.3); Carbon Dioxide 22 mEq/L (23-29); Chloride 100 mEq/L (98-107); Globulin 3.1 g/dL (2.4-3.5); Glucose 100 mg/dL (70-105); Osmolality,Calculated 276 (280-300); Potassium 3.3 mEq/L (3.5-5.1); Sodium 134 mEq/L (136-145); Total Protein 7.2 g/dL (6.4-8.9); eGFR For African Americans > 60 (> 60); eGFR For Non-African Americans > 60 (> 60)
--- NOTE | 2018-12-01 23:52 | Emergency Department Note ---
Disposition Clinical Impression: Pyelonephritis Disposition: Admitted As Inpatient Condition: Good Time of Disposition: 00:30 Abdominal Pain HPI - General Chief Complaint: ED Abdominal Pain Stated Complaint: n/v right flank pain Time Seen by Provider: 12/01/18 20:15 Source: EMS - History of Present Illness HPI Narrative: 23 yo woman who is has had sharp right flank pain for , and has been unable to tolerate PO intake x2 days Pain Scale: 10 - Related Data Home Medications Medication Instructions Recorded Confirmed Amoxicillin [Amoxil] 500 mg PO BID 12/01/18 12/01/18 Multivitamin [Flintstones] 2 each PO DAILY 12/01/18 12/01/18 Allergies Allergy/AdvReac Type Severity Reaction Status Date / Time No Known Allergies Allergy Verified 12/01/18 21:42 Abdominal Pain PMH - Past Medical History Medical history: Reports: no medical history Female Surgical History: Reports: no surgical history MUTUEL CLERK history: Reports: no 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 Pupils equal and reactive. Cardio: Tachycardic, regular rhythm, no murmur, no peripheral edema, good perfusion to all extremities, no cyanosis Resp: Equal breath sounds bilaterally, no wheeze, no cough GI: Abdomen soft, nondistended, diffusely tender to palpation. No ecchymoses, no rash. : No suprapubic tenderness or distention. +CVA tenderness on right flank. MSK: Normal ROM, no joint swelling or erythema Neuro: CNI-XII intact, strength and sensation WNL Psych: Appropriate affect - General Limitations: no limitations General appearance: alert Course Course Narrative: VS stable, tachycardia fluid responsive. Gave IVF, zofran. CMP, CBC, UA, EKG, troponin, LFT, lipase ordered. Vital Signs Temperature 98.8 F 12/01/18 20:11 Pulse Rate 101 12/01/18 20:11 Respiratory Rate 16 12/01/18 20:11 Blood Pressure 127/74 12/01/18 20:11 O2 Sat by Pulse Oximetry 99 12/01/18 20:11 Temperature 98.3 F 12/02/18 01:30 Pulse Rate 89 12/02/18 01:30 Respiratory Rate 14 12/02/18 01:30 Blood Pressure 107/68 12/02/18 01:30 O2 Sat by Pulse Oximetry 98 12/02/18 01:30 Oxygen Delivery Oxygen Delivery Room Air Abdominal Pain - MDM Narrative Medical decision making narrative: VS stable, labwork with mild elevated leukocytosis and UA with 3-5 WBC plus few bacteria. movement detected by abdominal US. Beta hcg appropriate. 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 Patient and family agreed. - Medical Records Medical records reviewed: Yes I reviewed the patient's medical records. - Lab Data Lab results reviewed: Yes I reviewed the patient's lab results. Result diagrams: 12/01/18 22:08 12/01/18 22:08 Lab Results 12/01/18 12/01/18 12/01/18 Range/Units 20:38 22:08 22:08 WBC (4.3-11.1) K/mcL RBC (3.82-4.97) M/mcL Hgb (11.5-15.4) g/dL Hct (35.3-44.9) % MCV (83.0-100.0) fL MCH (28.0-33.3) pg MCHC (31.6-35.5) g/dL RDW (11.5-14.5) % Plt Count (140-400) K/mcL MPV (9.4-12.4) fL Immature Gran % (0-4) % Seg Neutrophils % % Lymphocytes % % Monocytes % % Eosinophils % % Basophils % % Neutrophils # (1.6-8.9) K/mcL Lymphocytes # (0.6-4.6) K/mcL Monocytes # (0.0-1.3) K/mcL Eosinophils # (0.0-0.6) K/mcL Basophils # (0.0-0.2) K/mcL Sodium (136-145) mEq/L Potassium (3.5-5.1) mEq/L Chloride (98-107) mEq/L Carbon Dioxide (23-29) mEq/L BUN (6-20) mg/dL Creatinine (0.60-1.20) mg/dL Est GFR ( Amer) (> 60) Est GFR (Non-Af Amer) (> 60) BUN/Creatinine Ratio (6-26) Glucose (70-105) mg/dL Calculated Osmolality (280-300) Calcium (8.6-10.3) mg/dL Total Bilirubin (0.3-1.0) mg/dL Direct Bilirubin (0.0-0.2) mg/dL Indirect Bilirubin (0.0-1.2) mg/dL AST (13-39) Units/L ALT (7-52) Units/L Alkaline Phosphatase (34-104) Units/L Troponin I < 0.03 (< 0.04) ng/mL Serum Total Protein (6.4-8.9) g/dL Albumin (3.5-5.7) g/dL Globulin (2.4-3.5) g/dL Albumin/Globulin Ratio (1.1-2.2) Lipase (11-82) Units/L Beta HCG, Quant 612003 H (Less than 5) mIU/mL Urine Color Dark Yellow (Yellow) Urine Clarity Clear (Clear) Urine pH 6.0 (5.0-8.0) pH Units Ur Specific [place] 1.019 (1.010-1.025) Urine Protein Trace (Neg-Trace) mg/dL Urine Glucose (UA) Normal (Normal) mg/dL Urine Ketones 80 H (Negative) mg/dL Urine Blood Negative (Negative) Urine Nitrite Negative (Negative) Urine Bilirubin Small H (Negative) Urine Urobilinogen Normal (Normal) mg/dL Ur Leukocyte Esterase Small H (Negative) Urine Microscopic WBC 3-5 H (0-3) per hpf Ur Squamous Epith Cells Many H (None-Few) per lpf Urine Bacteria Few (None-Few) per hpf Hyaline Casts None Seen (None-Few) per lpf Urine Mucus Few (Few) Ur Culture Indicated? YES A (NO) 12/01/18 12/01/18 12/01/18 Range/Units 22:08 22:08 22:08 WBC 13.0 H (4.3-11.1) K/mcL RBC 5.21 H (3.82-4.97) M/mcL Hgb 14.0 (11.5-15.4) g/dL Hct 42.7 (35.3-44.9) % MCV 82.0 L (83.0-100.0) fL MCH 26.9 L (28.0-33.3) pg MCHC 32.8 (31.6-35.5) g/dL RDW 12.7 (11.5-14.5) % Plt Count 339 (140-400) K/mcL MPV 10.3 (9.4-12.4) fL Immature Gran % 0.4 (0-4) % Seg Neutrophils % 83.4 % Lymphocytes % 9.9 % Monocytes % 5.8 % Eosinophils % 0.3 % Basophils % 0.2 % Neutrophils # 10.8 H (1.6-8.9) K/mcL Lymphocytes # 1.3 (0.6-4.6) K/mcL Monocytes # 0.8 (0.0-1.3) K/mcL Eosinophils # 0.0 (0.0-0.6) K/mcL Basophils # 0.0 (0.0-0.2) K/mcL Sodium 134 L (136-145) mEq/L Potassium 3.3 L (3.5-5.1) mEq/L Chloride 100 (98-107) mEq/L Carbon Dioxide 22 L (23-29) mEq/L BUN 7 (6-20) mg/dL Creatinine 0.50 L (0.60-1.20) mg/dL Est GFR ( Amer) > 60 (> 60) Est GFR (Non-Af Amer) > 60 (> 60) BUN/Creatinine Ratio 14 (6-26) Glucose 100 (70-105) mg/dL Calculated Osmolality 276 L (280-300) Calcium 9.4 (8.6-10.3) mg/dL Total Bilirubin 0.8 0.8 (0.3-1.0) mg/dL Direct Bilirubin 0.4 H (0.0-0.2) mg/dL Indirect Bilirubin 0.4 (0.0-1.2) mg/dL AST 45 H 44 H (13-39) Units/L ALT 90 H 88 H (7-52) Units/L Alkaline Phosphatase 66 65 (34-104) Units/L Troponin I (< 0.04) ng/mL Serum Total Protein 7.2 7.2 (6.4-8.9) g/dL Albumin 4.1 4.0 (3.5-5.7) g/dL Globulin 3.1 3.2 (2.4-3.5) g/dL Albumin/Globulin Ratio 1.3 1.3 (1.1-2.2) Lipase 7 L (11-82) Units/L Beta HCG, Quant (Less than 5) mIU/mL Urine Color (Yellow) Urine Clarity (Clear) Urine pH (5.0-8.0) pH Units Ur Specific [place] (1.010-1.025) Urine Protein (Neg-Trace) mg/dL Urine Glucose (UA) (Normal) mg/dL Urine Ketones (Negative) mg/dL Urine Blood (Negative) Urine Nitrite (Negative) Urine Bilirubin (Negative) Urine Urobilinogen (Normal) mg/dL Ur Leukocyte Esterase (Negative) Urine Microscopic WBC (0-3) per hpf Ur Squamous Epith Cells (None-Few) per lpf Urine Bacteria (None-Few) per hpf Hyaline Casts (None-Few) per lpf Urine Mucus (Few) Ur Culture Indicated? (NO) - Radiology Data Radiology results reviewed: Yes I reviewed the patient's radiology results. - EKG Data EKG attestation: Yes I reviewed and interpreted this EKG. EKG shows normal: sinus rhythm Rate: normal Rhythm: NSR Interpretation: normal EKG
[2018-12-02] MEDS ORDERED: 0.9 % Sodium Chloride 1,000 ML IVC STA (00:30)
[2018-12-02] MEDS ORDERED: cefTRIAXone 2,000 MG in 0.9 % Sodium Chloride Mini Bag 100 ML IVPB ONE (00:30)
[2018-12-02] MEDS ORDERED: Scopolamine Patch 1.5 MG PATCH.TD72 TD SCH (01:23)
[2018-12-02] MEDS ORDERED: Ringers Solution, Lactated 1,000 ML IVC SCH (01:23)
[2018-12-02] MEDS ORDERED: Acetaminophen 325 MG TABLET PO PRN ×2 (02:03→09:02)
[2018-12-02] MEDS ORDERED: Ondansetron 4 MG/2 ML VIAL IVP SCH (06:00)
[2018-12-02] MEDS ORDERED: Famotidine 20 MG/2 ML VIAL IVP SCH (06:00)
[2018-12-02 07:51] VITALS: BP 101/60
--- NOTE | 2018-12-02 08:52 | Electrocardiograph Report ---
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
[2018-12-02 10:44] LABS: Basophils % 0.2 %; Eosinophils % 0.4 %; Hematocrit 35.9 % (35.3-44.9); Immature Granulocytes % 0.3 % (0-4); Lymphocytes % 9.6 %; Mean Corpuscular HGB Conc 32.6 g/dL (31.6-35.5); Mean Corpuscular Hemoglobin 26.7 pg (28.0-33.3); Mean Platelet Volume 10.6 fL (9.4-12.4); Monocytes # 0.8 K/mcL (0.0-1.3); Monocytes % 7.3 %; Neutrophils # 8.7 K/mcL (1.6-8.9); Platelet Count 290 K/mcL (140-400); Red Blood Count 4.38 M/mcL (3.82-4.97); Red Cell Distribution Width 12.5 % (11.5-14.5); Segmented Neutrophils % 82.2 %; White Blood Count 10.5 K/mcL (4.3-11.1)
[2018-12-02 10:55] LABS: Hemoglobin 11.7 g/dL (11.5-15.4)
[2018-12-02 11:01] LABS: Albumin 3.4 g/dL (3.5-5.7); Albumin/Globulin Ratio 1.3 (1.1-2.2); Bilirubin,Direct 0.4 mg/dL (0.0-0.2); Bilirubin,Indirect 0.5 mg/dL (0.0-1.2); Bilirubin,Total 0.9 mg/dL (0.3-1.0); Globulin 2.6 g/dL (2.4-3.5)
--- NOTE | 2018-12-02 12:41 | Discharge Summary ---
Date of Encounter: 12/02/18 Time of Encounter: 12:40 - Discharge Diagnosis (1) 11 weeks gestation of Priority: Secondary Status: Acute (2) Flank pain Priority: Secondary Status: Acute (3) Nausea & vomiting Priority: Primary Status: Acute Comments: Pt reports that she originally presented to ER 3 days ago for flank pain. She states she was given fentanyl for pain and that is what started the vomiting. She was then unable to keep anything down since until she represented last evening. She was admitted for observation and dehydration. Today she reports feeling better since getting IV fluids and a scopalamine patch. She reports her flank pain is much better also. She also reports a mild headache but declines anything other than tylenol for this. Pt is requesting discharge home at this time. Discharge home. Rx scopalamine and zofran as last resort for vomiting. Follow-up in office as scheduled. Qualifiers: Vomiting type: unspecified Vomiting Intractability: non-intractable Qualified Code(s): R11.2 - Nausea with vomiting, unspecified - Discharge Medications Prescriptions: New Scopolamine Patch [Transderm-Scop] 1.5 mg TD Q72H #5 patch.td72 Calcium Carbonate [Tums] 1,000 mg PO Q4HR PRN tab.chew PRN Reason: Heartburn Acetaminophen [Tylenol] 975 mg PO Q6HR PRN tablet PRN Reason: Pain Ondansetron ODT [Zofran ODT] 4 mg SL Q6HR #30 tab.rapdis Continued Amoxicillin [Amoxil] 500 mg PO BID Multivitamin [Flintstones] 2 each PO DAILY Home Medications: Amoxicillin [Amoxil] 500 mg PO BID 12/01/18 [History] Multivitamin [Flintstones] 2 each PO DAILY 12/01/18 [History] Acetaminophen [Tylenol] 975 mg PO Q6HR PRN tablet 12/02/18 [Rx] Calcium Carbonate [Tums] 1,000 mg PO Q4HR PRN tab.chew 12/02/18 [Rx] Ondansetron ODT [Zofran ODT] 4 mg SL Q6HR #30 tab.rapdis 12/02/18 [Rx] Scopolamine Patch [Transderm-Scop] 1.5 mg TD Q72H #5 patch.td72 12/02/18 [Rx] Allergies/Adverse Reactions: Allergy/AdvReac Type Severity Reaction Status Date / Time No Known Allergies Allergy Verified 12/01/18 21:42 Data Procedures and tests throughout hospitalization: Laboratory Tests 12/01/18 12/01/18 12/01/18 20:38 22:08 22:08 WBC RBC Hgb Hct MCV MCH MCHC RDW Plt Count MPV Immature Gran % Seg Neutrophils % Lymphocytes % Monocytes % Eosinophils % Basophils % Neutrophils # Lymphocytes # Monocytes # Eosinophils # Basophils # Sodium Potassium Chloride Carbon Dioxide BUN Creatinine Est GFR ( Amer) Est GFR (Non-Af Amer) BUN/Creatinine Ratio Glucose Calculated Osmolality Calcium Total Bilirubin Direct Bilirubin Indirect Bilirubin AST ALT Alkaline Phosphatase Troponin I < 0.03 Serum Total Protein Albumin Globulin Albumin/Globulin Ratio Lipase Beta HCG, Quant [id number] H Urine Color Dark Yellow Urine Clarity Clear Urine pH 6.0 Ur Specific [place] 1.019 Urine Protein Trace Urine Glucose (UA) Normal Urine Ketones 80 H Urine Blood Negative Urine Nitrite Negative Urine Bilirubin Small H Urine Urobilinogen Normal Ur Leukocyte Esterase Small H Urine Microscopic WBC 3-5 H Ur Squamous Epith Cells Many H Urine Bacteria Few Hyaline Casts None Seen Urine Mucus Few Ur Culture Indicated? YES A 12/01/18 12/01/18 12/01/18 22:08 22:08 22:08 WBC 13.0 H RBC 5.21 H Hgb 14.0 Hct 42.7 MCV 82.0 L MCH 26.9 L MCHC 32.8 RDW 12.7 Plt Count 339 MPV 10.3 Immature Gran % 0.4 Seg Neutrophils % 83.4 Lymphocytes % 9.9 Monocytes % 5.8 Eosinophils % 0.3 Basophils % 0.2 Neutrophils # 10.8 H Lymphocytes # 1.3 Monocytes # 0.8 Eosinophils # 0.0 Basophils # 0.0 Sodium 134 L Potassium 3.3 L Chloride 100 Carbon Dioxide 22 L BUN 7 Creatinine 0.50 L Est GFR ( Amer) > 60 Est GFR (Non-Af Amer) > 60 BUN/Creatinine Ratio 14 Glucose 100 Calculated Osmolality 276 L Calcium 9.4 Total Bilirubin 0.8 0.8 Direct Bilirubin 0.4 H Indirect Bilirubin 0.4 AST 45 H 44 H ALT 90 H 88 H Alkaline Phosphatase 66 65 Troponin I Serum Total Protein 7.2 7.2 Albumin 4.1 4.0 Globulin 3.1 3.2 Albumin/Globulin Ratio 1.3 1.3 Lipase 7 L Beta HCG, Quant Urine Color Urine Clarity Urine pH Ur Specific [place] Urine Protein Urine Glucose (UA) Urine Ketones Urine Blood Urine Nitrite Urine Bilirubin Urine Urobilinogen Ur Leukocyte Esterase Urine Microscopic WBC Ur Squamous Epith Cells Urine Bacteria Hyaline Casts Urine Mucus Ur Culture Indicated? 12/02/18 12/02/18 10:15 10:15 WBC 10.5 RBC 4.38 Hgb 11.7 D Hct 35.9 MCV 82.0 L MCH 26.7 L MCHC 32.6 RDW 12.5 Plt Count 290 MPV 10.6 Immature Gran % 0.3 Seg Neutrophils % 82.2 Lymphocytes % 9.6 Monocytes % 7.3 Eosinophils % 0.4 Basophils % 0.2 Neutrophils # 8.7 Lymphocytes # 1.0 Monocytes # 0.8 Eosinophils # 0.0 Basophils # 0.0 Sodium Potassium Chloride Carbon Dioxide BUN Creatinine Est GFR ( Amer) Est GFR (Non-Af Amer) BUN/Creatinine Ratio Glucose Calculated Osmolality Calcium Total Bilirubin 0.9 Direct Bilirubin 0.4 H Indirect Bilirubin 0.5 AST 57 H ALT 99 H Alkaline Phosphatase 61 Troponin I Serum Total Protein 6.0 L Albumin 3.4 L Globulin 2.6 Albumin/Globulin Ratio 1.3 Lipase Beta HCG, Quant Urine Color Urine Clarity Urine pH Ur Specific [place] Urine Protein Urine Glucose (UA) Urine Ketones Urine Blood Urine Nitrite Urine Bilirubin Urine Urobilinogen Ur Leukocyte Esterase Urine Microscopic WBC Ur Squamous Epith Cells Urine Bacteria Hyaline Casts Urine Mucus Ur Culture Indicated? Labs on day of discharge: Labs from last 24 hours 12/02/18 12/02/18 12/01/18 10:15 10:15 22:08 WBC 10.5 RBC 4.38 Hgb 11.7 D Hct 35.9 MCV 82.0 L MCH 26.7 L MCHC 32.6 RDW 12.5 Plt Count 290 MPV 10.6 Immature Gran % 0.3 Seg Neutrophils % 82.2 Lymphocytes % 9.6 Monocytes % 7.3 Eosinophils % 0.4 Basophils % 0.2 Neutrophils # 8.7 Lymphocytes # 1.0 Monocytes # 0.8 Eosinophils # 0.0 Basophils # 0.0 Sodium Potassium Chloride Carbon Dioxide BUN Creatinine Est GFR ( Amer) Est GFR (Non-Af Amer) BUN/Creatinine Ratio Glucose Calculated Osmolality Calcium Total Bilirubin 0.9 0.8 Direct Bilirubin 0.4 H 0.4 H Indirect Bilirubin 0.5 0.4 AST 57 H 44 H ALT 99 H 88 H Alkaline Phosphatase 61 65 Troponin I Serum Total Protein 6.0 L 7.2 Albumin 3.4 L 4.0 Globulin 2.6 3.2 Albumin/Globulin Ratio 1.3 1.3 Lipase 7 L Beta HCG, Quant Urine Color Urine Clarity Urine pH Ur Specific [place] Urine Protein Urine Glucose (UA) Urine Ketones Urine Blood Urine Nitrite Urine Bilirubin Urine Urobilinogen Ur Leukocyte Esterase Urine Microscopic WBC Ur Squamous Epith Cells Urine Bacteria Hyaline Casts Urine Mucus Ur Culture Indicated? 12/01/18 12/01/18 12/01/18 22:08 22:08 22:08 WBC 13.0 H RBC 5.21 H Hgb 14.0 Hct 42.7 MCV 82.0 L MCH 26.9 L MCHC 32.8 RDW 12.7 Plt Count 339 MPV 10.3 Immature Gran % 0.4 Seg Neutrophils % 83.4 Lymphocytes % 9.9 Monocytes % 5.8 Eosinophils % 0.3 Basophils % 0.2 Neutrophils # 10.8 H Lymphocytes # 1.3 Monocytes # 0.8 Eosinophils # 0.0 Basophils # 0.0 Sodium 134 L Potassium 3.3 L Chloride 100 Carbon Dioxide 22 L BUN 7 Creatinine 0.50 L Est GFR ( Amer) > 60 Est GFR (Non-Af Amer) > 60 BUN/Creatinine Ratio 14 Glucose 100 Calculated Osmolality 276 L Calcium 9.4 Total Bilirubin 0.8 Direct Bilirubin Indirect Bilirubin AST 45 H ALT 90 H Alkaline Phosphatase 66 Troponin I < 0.03 Serum Total Protein 7.2 Albumin 4.1 Globulin 3.1 Albumin/Globulin Ratio 1.3 Lipase Beta HCG, Quant Urine Color Urine Clarity Urine pH Ur Specific [place] Urine Protein Urine Glucose (UA) Urine Ketones Urine Blood Urine Nitrite Urine Bilirubin Urine Urobilinogen Ur Leukocyte Esterase Urine Microscopic WBC Ur Squamous Epith Cells Urine Bacteria Hyaline Casts Urine Mucus Ur Culture Indicated? 12/01/18 12/01/18 22:08 20:38 WBC RBC Hgb Hct MCV MCH MCHC RDW Plt Count MPV Immature Gran % Seg Neutrophils % Lymphocytes % Monocytes % Eosinophils % Basophils % Neutrophils # Lymphocytes # Monocytes # Eosinophils # Basophils # Sodium Potassium Chloride Carbon Dioxide BUN Creatinine Est GFR ( Amer) Est GFR (Non-Af Amer) BUN/Creatinine Ratio Glucose Calculated Osmolality Calcium Total Bilirubin Direct Bilirubin Indirect Bilirubin AST ALT Alkaline Phosphatase Troponin I Serum Total Protein Albumin Globulin Albumin/Globulin Ratio Lipase Beta HCG, Quant [id number] H Urine Color Dark Yellow Urine Clarity Clear Urine pH 6.0 Ur Specific [place] 1.019 Urine Protein Trace Urine Glucose (UA) Normal Urine Ketones 80 H Urine Blood Negative Urine Nitrite Negative Urine Bilirubin Small H Urine Urobilinogen Normal Ur Leukocyte Esterase Small H Urine Microscopic WBC 3-5 H Ur Squamous Epith Cells Many H Urine Bacteria Few Hyaline Casts None Seen Urine Mucus Few Ur Culture Indicated? YES A Preliminary micro results at discharge 12/01/18 20:38 Urine Culture - Preliminary Urine,Clean Catch Culture is incubating. Date of admission: 12/02/18 00:42 Primary care physician: PCP NONE Discharging clinician: Ivone Samuel Anticipated date of discharge: 12/02/18 - Patient Status Disposition: Home, Self-Care Condition: Good Functional capacity at discharge: independent ambulation Overall status at discharge: patient is progressing back to baseline - Discharge Instructions Follow Up With: NONE,PCP [Primary Care Provider] - Eloisa Plasencia MD [Partnered Physician] - - Diet and Activity Activity: increase activity as tolerated Diet: regular diet Hospital Course [employer] Hospital course: Pt reports that she originally presented to ER 3 days ago for flank pain. She states she was given fentanyl for pain and that is what started the vomiting. She was then unable to keep anything down since until she represented last evening. She was admitted for observation and dehydration. Today she reports feeling better since getting IV fluids and a scopalamine patch. She reports her flank pain is much better also. She also reports a mild headache but declines anything other than tylenol for this. She desires discharge home today. Time Attestation: Total time spent providing and/or coordinating discharge services: Exam - Constitutional Vitals: Temp Pulse Resp BP Pulse Ox 98.1 F 86 14 101/60 96 12/02/18 07:49 12/02/18 07:49 12/02/18 07:49 12/02/18 07:49 12/02/18 07:49 General appearance IM: A&O X 3 - Respiratory Respiratory exam: Present: CTAB - Cardiovascular Cardiovascular exam IM: Present: RRR - GI/Abdominal GI/Abdominal exam IM: soft, tenderness (mild CVAT on right) - Extremities Exam Extremities exam IM: Present: normal inspection - Neurological Exam Neurological exam: normal gait, oriented X3 - Psychiatric Additional comments: reports good mood - Other Additional findings: FHT 160 BPM - VTE Reasons for not Prescribing Prophylaxis: Treatment not Indicated - Low risk for VTE
--- NOTE | 2018-12-05 14:26 | OB/GYN History & Physical ---
Date of Encounter: 12/02/18 Time of Encounter: 05:00 Assessment and Plan (1) 11 weeks gestation of Status: Acute Admit to observation for nausea/vomiting (2) Nausea and vomiting in prior to 22 weeks gestation Status: Acute Admit to observation for IV fluid hydration, antiemetics (3) Flank pain Status: Acute UA normal IV Rocephin given in ER. History of Present Illness Chief complaint: Nausea/Vomiting, flank pain HPI: Ms. Medel is a 23 year old female who originally presented to ER 3 days ago for flank pain. She states she was given fentanyl for pain and that is what started the vomiting. She was then unable to keep anything down since until she presented last evening. She reports that she has had nausea vomiting with each but feels like this is something different. She states that her nausea was resolving and then she started again but it didn't feel the same. She is not yet feeling movement which is appropriate given her gestational age of 11 weeks. Patient states she is feeling better after IV fluid and nausea medication. On exam, she has very slight right flank pain. She is interested in being discharged today. She has been given Tylenol for discomfort. Past Med Surg Social Fam HX - Past Medical History Source: patient Medical history: no medical history Additional medical history: [id number], 2013 Psychiatric history: anxiety - Past Surgical History Surgical History: no surgical history - Social History Smoking Status: Never smoker Smokeless Tobacco Status: No Alcohol use: none Drug use: none Current living situation: Home - Independent Activity Level: Independent ambulation Recent Out of Country Travel Within the Last 8 Weeks: No Exposure or Possible Exposure to Illness During Travel: No - Family History Mother Adopted: No Family Member Ethnicity: Non- Living Status: Still Living Hx Family Cardiac Disorders: No Hx Family Respiratory Disorders: No Hx Family Cancer: No Hx Family GI Disorders: No Hx Family Endocrine Disorder: No Hx Family Neuromuscular Disorders: No Hx Family Neurologic Disorders: No Hx Family HEENT Disorders: No Hx Family Autoimmune Disorders: No Obstetrical History - Pregnancies : 3 Para: 1 Term: 1 : 0 Ab's: 1 Livin Medications and Allergies Amoxicillin [Amoxil] 500 mg PO BID 12/01/18 [History] Multivitamin [Flintstones] 2 each PO DAILY 12/01/18 [History] Acetaminophen [Tylenol] 975 mg PO Q6HR PRN tablet 12/02/18 [Rx] Calcium Carbonate [Tums] 1,000 mg PO Q4HR PRN tab.chew 12/02/18 [Rx] Ondansetron ODT [Zofran ODT] 4 mg SL Q6HR #30 tab.rapdis 12/02/18 [Rx] Scopolamine Patch [Transderm-Scop] 1.5 mg TD Q72H #5 patch.td72 12/02/18 [Rx] Allergy/AdvReac Type Severity Reaction Status Date / Time No Known Allergies Allergy Verified 12/01/18 21:42 Review of System OB All systems PM: reviewed and no additional remarkable complaints except as st ated Exam - Vital Signs Vital signs: Initial Vital Signs Temp Pulse Resp BP Pulse Ox 98.8 F 101 16 127/74 99 12/01/18 20:11 12/01/18 20:11 12/01/18 20:11 12/01/18 20:11 12/01/18 20:11 - Constitutional Constitutional: well developed, well nourished, no acute distress, average body habitus - HEENT HEENT: Normocephaly, Mucus Membranes Moist - Neck Neck exam: full ROM - Lungs Respiratory exam: CTAB - Cardiovascular Cardiovascular exam: RRR, +S1, +S2 - Abdomen Abdomen: Present: bowel sounds normal, gravid, non tender - Extremities Extremities exam: full ROM, normal capillary refill, normal inspection Deep Tendon Reflex Grade: 2+ Normal Results Result Diagrams: 12/02/18 10:15 12/01/18 22:08 Abnormal lab results WBC 13.0 K/mcL (4.3-11.1) H 12/01/18 22:08 RBC 5.21 M/mcL (3.82-4.97) H 12/01/18 22:08 MCV 82.0 fL (83.0-100.0) L 12/02/18 10:15 MCH 26.7 pg (28.0-33.3) L 12/02/18 10:15 Neutrophils # 10.8 K/mcL (1.6-8.9) H 12/01/18 22:08 Sodium 134 mEq/L (136-145) L 12/01/18 22:08 Potassium 3.3 mEq/L (3.5-5.1) L 12/01/18 22:08 Carbon Dioxide 22 mEq/L (23-29) L 12/01/18 22:08 Creatinine 0.50 mg/dL (0.60-1.20) L 12/01/18 22:08 Calculated Osmolality 276 (280-300) L 12/01/18 22:08 Direct Bilirubin 0.4 mg/dL (0.0-0.2) H 12/02/18 10:15 AST 57 Units/L (13-39) H 12/02/18 10:15 ALT 99 Units/L (7-52) H 12/02/18 10:15 Serum Total Protein 6.0 g/dL (6.4-8.9) L 12/02/18 10:15 Albumin 3.4 g/dL (3.5-5.7) L 12/02/18 10:15 Lipase 7 Units/L (11-82) L 12/01/18 22:08 Beta HCG, Quant 121610 mIU/mL (Less than 5) H 12/01/18 22:08 Urine Ketones 80 mg/dL (Negative) H 12/01/18 20:38 Urine Bilirubin Small (Negative) H 12/01/18 20:38 Ur Leukocyte Esterase Small (Negative) H 12/01/18 20:38 Urine Microscopic WBC 3-5 per hpf (0-3) H 12/01/18 20:38 Ur Squamous Epith Cells Many per lpf (None-Few) H 12/01/18 20:38 Ur Culture Indicated? YES (NO) A 12/01/18 20:38 All other labs normal. - VTE Reasons for not Prescribing Prophylaxis: Treatment not Indicated - Low risk for VTE
== END 2018-12-02 14:30 | disposition home or self-care (01) ==
LOC: EMEROOARM 20:05 → 1NENUOBS 20:05
PROVIDERS: ADMIT Student in an Organized Health Care Education/Training Program; ATTEND Student in an Organized Health Care Education/Training Program

== ENCOUNTER → 2019-04-24 13:18 | Observation (INO) ==
[2019-04-24 11:24] LABS: Clarity,Urine Cloudy (Clear); Color,Urine Orange (Yellow)
[2019-04-24 11:26] LABS: Hyaline Casts,Urine Few per lpf (None-Few); Squamous Epithelial Cell,Urine Many per lpf (None-Few)
[2019-04-24 11:42] LABS: RBC,Urine 15-30 per hpf (0-3)
[2019-04-24 11:43] LABS: Bacteria,Urine Many per hpf (None-Few)
== END | disposition home or self-care (01) ==
LOC: 1NENULAB
PROVIDERS: ADMIT Registered Nurse; ATTEND Registered Nurse

== ENCOUNTER → 2019-06-01 01:40 | Observation (INO) ==
[2019-05-31 23:38] LABS: Basophils % 0.1 %; Eosinophils # 0.1 K/mcL (0.0-0.6); Eosinophils % 0.5 %; Hematocrit 37.8 % (35.3-44.9); Hemoglobin 12.1 g/dL (11.5-15.4); Immature Granulocytes % 0.3 % (0-4); Lymphocytes # 2.3 K/mcL (0.6-4.6); Lymphocytes % 19.8 %; Mean Corpuscular Hemoglobin 25.5 pg (28.0-33.3); Mean Corpuscular Volume 79.7 fL (83.0-100.0); Mean Platelet Volume 10.6 fL (9.4-12.4); Monocytes # 0.8 K/mcL (0.0-1.3); Monocytes % 6.7 %; Neutrophils # 8.4 K/mcL (1.6-8.9); Platelet Count 316 K/mcL (140-400); Red Blood Count 4.74 M/mcL (3.82-4.97); Red Cell Distribution Width 13.3 % (11.5-14.5); Segmented Neutrophils % 72.6 %; White Blood Count 11.6 K/mcL (4.3-11.1)
[2019-05-31 23:39] LABS: Bilirubin,Urine Negative (Negative); Blood,Urine Moderate (Negative); Clarity,Urine Cloudy (Clear); Color,Urine Yellow (Yellow); Glucose,Urine (UA) Normal (Normal); Ketones,Urine Negative (Negative); Leukocyte Esterase,Urine Small (Negative); Nitrite,Urine Negative (Negative); Protein,Urine Trace mg/dL (Neg-Trace); Specific Gravity,Urine 1.027 (1.010-1.025); Urobilinogen,Urine Normal (Normal)
[2019-05-31 23:41] LABS: Bacteria,Urine Moderate per hpf (None-Few); RBC,Urine 0-3 per hpf (0-3); Squamous Epithelial Cell,Urine Many per lpf (None-Few); WBC,Urine 15-30 per hpf (0-3)
[2019-05-31 23:45] LABS: Protein/Creatinine Ratio,Urine 0.17 mg/mg (0.00-0.20)
[2019-05-31 23:55] LABS: Alanine Aminotransferase 9 Units/L (7-52); Aspartate Amino Transferase 13 Units/L (13-39); BUN/Creatinine Ratio 13 (6-26); Blood Urea Nitrogen 7 mg/dL (6-20); Lactate Dehydrogenase 130 Units/L (140-271); Uric Acid 4.1 mg/dL (2.3-7.6); eGFR For African Americans > 60 (> 60); eGFR For Non-African Americans > 60 (> 60)
[2019-06-01 00:15] LABS: Calcium Oxalate Crystals,Urine Present
[~2019-06-01 01:40] MED LIST: Acetaminophen 325 MG TABLET PO ONE; Ringers Solution, Lactated 1,000 ML ONE
== END | disposition home or self-care (01) ==
LOC: 1NENULAB
PROVIDERS: ADMIT Registered Nurse; ATTEND Registered Nurse

== ENCOUNTER 2019-06-10 17:59 | Inpatient (IN) ==
[~2019-06-10 17:59] MED LIST changes: -Acetaminophen 325 MG TABLET PO ONE; +Oxytocin 20 units/ LR 1000 mL 20 UNIT/1,000 ML BAG IVC ONE
[2019-06-10] MEDS ORDERED: Acetaminophen 325 MG TABLET PO PRN (18:20)
[2019-06-10] MEDS ORDERED: Oxytocin 20 units/ LR 1000 mL 20 UNIT/1,000 ML BAG IVC SCH (18:30)
[2019-06-10] MEDS ORDERED: *HR* FentaNYL (PF) 100 MCG/2 ML VIAL IVP PRN (19:08)
[2019-06-10] MEDS ORDERED: Azithromycin 500 MG in 0.9 % Sodium Chloride 250 ML IVPB ONE (19:08)
[2019-06-10] MEDS ORDERED: Lidocaine 1% 20 ML MDV INFILT PRN (19:08)
[2019-06-10] MEDS ORDERED: Naloxone 0.4 MG/ML INJ IVP PRN (19:08)
[2019-06-10] MEDS ORDERED: Famotidine 20 MG/2 ML VIAL IVP PRN (19:08)
[2019-06-10] MEDS ORDERED: Ondansetron 4 MG/2 ML VIAL IVP PRN (19:08)
[2019-06-10] MEDS ORDERED: Metoclopramide 10 MG/2 ML VIAL IVP PRN (19:08)
[2019-06-10] MEDS ORDERED: Ringers Solution, Lactated 1,000 ML IVC SCH (19:15)
[2019-06-10] MEDS ORDERED: Epidural Premix (fent/bupiv) 110 ML EP ONE (20:12)
[2019-06-10] MEDS ORDERED: *HR* FentaNYL (PF) 100 MCG/2 ML VIAL ONE (20:13)
[2019-06-10] MEDS ORDERED: Ropivacaine/PF 0.2% 20 ML VIAL ONE (20:14)
[2019-06-10 20:15] LABS: Basophils % 0.2 %; Eosinophils % 0.5 %; Hematocrit 36.4 % (35.3-44.9); Hemoglobin 11.6 g/dL (11.5-15.4); Immature Granulocytes % 0.4 % (0-4); Lymphocytes # 1.7 K/mcL (0.6-4.6); Lymphocytes % 20.2 %; Mean Corpuscular HGB Conc 31.9 g/dL (31.6-35.5); Mean Corpuscular Hemoglobin 25.8 pg (28.0-33.3); Mean Corpuscular Volume 80.9 fL (83.0-100.0); Mean Platelet Volume 11.4 fL (9.4-12.4); Monocytes # 0.6 K/mcL (0.0-1.3); Monocytes % 7.2 %; Neutrophils # 6.1 K/mcL (1.6-8.9); Platelet Count 245 K/mcL (140-400); Red Cell Distribution Width 13.5 % (11.5-14.5); Segmented Neutrophils % 71.5 %; White Blood Count 8.6 K/mcL (4.3-11.1)
[2019-06-10] MEDS ORDERED: EPHEDrine 50 MG/ML VIAL IVP PRN (20:55)
[2019-06-10] MEDS ORDERED: Epidural Premix (fent/bupiv) 110 ML EP SCH (21:00)
[2019-06-11] MEDS ORDERED: miSOPROStoL 100 MCG TABLET PO ONE (01:19)
[2019-06-11 02:07] LABS: Amphetamine Screen,Urine Negative ng/mL (Cutoff=1000); Barbiturate Screen,Urine Negative ng/mL (Cutoff=200); Benzodiazepines Screen,Urine Negative ng/mL (Cutoff=200); Cannabinoid Screen,Urine Negative ng/mL (Cutoff = 50); Cocaine Screen,Urine Negative ng/mL (Cutoff= 300); Opiate Screen,Urine Negative ng/mL (Cutoff=300); Phencyclidine Screen,Urine Negative ng/mL (Cutoff=25)
[2019-06-11] MEDS ORDERED: Measles/Mumps/Rubella Vacc 0.5 ML VIAL SQ PRN (02:53)
[2019-06-11] MEDS ORDERED: Oxytocin 20 units/ LR 1000 mL 20 UNIT/1,000 ML BAG IVC SCH (03:00)
[2019-06-11] MEDS: Ibuprofen 600 MG TABLET PO PRN ×3 (03:04→15:56)
[2019-06-11] MEDS: Acetaminophen 325 MG TABLET PO PRN ×3 (03:27→15:56)
[2019-06-11 06:38] LABS: Platelet Estimate Normal (Normal)
[2019-06-11 06:39] LABS: Hematocrit 36.4 % (35.3-44.9); Hemoglobin 11.6 g/dL (11.5-15.4); Mean Corpuscular HGB Conc 31.9 g/dL (31.6-35.5); Mean Corpuscular Hemoglobin 25.8 pg (28.0-33.3); Mean Corpuscular Volume 80.9 fL (83.0-100.0); Red Cell Distribution Width 39.3 % (11.5-14.5); White Blood Count 8.6 K/mcL (4.3-11.1)
[2019-06-11 06:40] LABS: Mean Platelet Volume 11.4 fL (9.4-12.4); Neutrophils # 6.2 K/mcL (1.6-8.9); Platelet Count 245 K/mcL (140-400); Segmented Neutrophils % 71.5 %
[2019-06-11] MEDS ORDERED: Prenatal Vit/FA 1 EACH TABLET PO SCH (09:00)
[2019-06-11] MEDS ORDERED: Benzocaine/Menthol 56 GM AEROSOL SPRAY TP PRN (14:32)
[2019-06-11] MEDS ORDERED: Benzocaine/Menthol 56 GM AEROSOL SPRAY TP ONE (14:35)
[2019-06-11 16:40] VITALS: BP 112/74
[2019-06-12] MEDS: Ibuprofen 600 MG TABLET PO PRN (00:21)
[2019-06-12] MEDS: Acetaminophen 325 MG TABLET PO PRN (00:24)
== END 2019-06-12 01:20 | disposition home or self-care (01) | DRG 560 ==
LOC: 1NENULAB 17:59 → 1NENUOBS 06-11 02:36
PROVIDERS: ADMIT Registered Nurse; ATTEND Registered Nurse

== ENCOUNTER → 2021-06-26 18:30 | Observation (INO) ==
[2021-06-26 16:48] LABS: Bacteria,Urine Few per hpf (None-Few); Bilirubin,Urine Negative (Negative); Blood,Urine Small (Negative); Clarity,Urine Clear (Clear); Color,Urine Light-Yellow (Yellow); Glucose,Urine (UA) Normal (Normal); Ketones,Urine Negative (Negative); Leukocyte Esterase,Urine Moderate (Negative); Mucus,Urine Few per lpf (None-Few); Nitrite,Urine Negative (Negative); PH,Urine 6.5 pH Units (5.0-8.0); Protein,Urine Trace mg/dL (Neg-Trace); RBC,Urine 30-50 per hpf (0-3); Specific Gravity,Urine 1.022 (1.010-1.025); Squamous Epithelial Cell,Urine Moderate per hpf (None-Few); Urobilinogen,Urine Normal (Normal)
[2021-06-26 19:25] LABS: Candida DNA Not Detected (Not Detect); Gardnerella DNA Not Detected (Not Detect); Trichomonas DNA Not Detected (Not Detect)
== END | disposition home or self-care (01) ==
LOC: 1NENULAB
PROVIDERS: ADMIT Obstetrics & Gynecology; ATTEND Obstetrics & Gynecology

== ENCOUNTER → 2021-08-11 22:55 | Observation (INO) ==
[2021-08-11 21:25] LABS: Bacteria,Urine Few per hpf (None-Few); Bilirubin,Urine Negative (Negative); Blood,Urine Negative (Negative); Clarity,Urine Turbid (Clear); Color,Urine Yellow (Yellow); Glucose,Urine (UA) Normal (Normal); Ketones,Urine 20 mg/dL (Negative); Leukocyte Esterase,Urine Moderate (Negative); Mucus,Urine Few per lpf (None-Few); Nitrite,Urine Negative (Negative); Protein,Urine 50 mg/dL (Neg-Trace); RBC,Urine 15-30 per hpf (0-3); Specific Gravity,Urine > 1.030 (1.010-1.025); Squamous Epithelial Cell,Urine Many per hpf (None-Few)
[~2021-08-11 22:55] MED LIST changes: -Oxytocin 20 units/ LR 1000 mL 20 UNIT/1,000 ML BAG IVC ONE; -Ringers Solution, Lactated 1,000 ML ONE; +cephALEXin 500 MG CAPSULE PO SCH
== END | disposition home or self-care (01) ==
LOC: 1NENULAB
PROVIDERS: ADMIT Obstetrics & Gynecology; ATTEND Obstetrics & Gynecology

== ENCOUNTER 2021-08-22 14:24 | Inpatient (IN) ==
[~2021-08-22 14:24] MED LIST changes: +*HR* Nalbuphine 10 MG/ML AMPUL IV PRN; +Famotidine 20 MG/2 ML VIAL IVP PRN; +Lidocaine 1% 20 ML MDV INFILT PRN; +Metoclopramide 10 MG/2 ML VIAL IVP PRN; +Naloxone 0.4 MG/ML INJ IVP PRN; +Ondansetron 4 MG/2 ML VIAL IVP PRN; -cephALEXin 500 MG CAPSULE PO SCH
[2021-08-22] MEDS ORDERED: Ringers Solution, Lactated 1,000 ML IVC SCH (14:30)
[2021-08-22] MEDS ORDERED: Ropivacaine/PF 0.2% 20 ML VIAL EP ONE (14:52)
[2021-08-22] MEDS ORDERED: *HR* FentaNYL (PF) 100 MCG/2 ML VIAL EP ONE (14:52)
[2021-08-22] MEDS ORDERED: EPHEDrine 50 MG/ML VIAL IVP PRN (14:52)
[2021-08-22] MEDS ORDERED: Epidural Premix (fent/bupiv) 110 ML EP SCH (15:00)
[2021-08-22] MEDS ORDERED: *HR* FentaNYL (PF) 100 MCG/2 ML VIAL ONE (15:00)
[2021-08-22] MEDS ORDERED: Bupivacaine-MPF 0.25% 10 ML VIAL ONE (15:01)
[2021-08-22 15:06] LABS: Amphetamine Screen,Urine Negative ng/mL (Cutoff=1000); Barbiturate Screen,Urine Negative ng/mL (Cutoff=200); Benzodiazepines Screen,Urine Negative ng/mL (Cutoff=200); Cannabinoid Screen,Urine Positive ng/mL (Cutoff = 50); Cocaine Screen,Urine Negative ng/mL (Cutoff= 300); Opiate Screen,Urine Negative ng/mL (Cutoff=300); Phencyclidine Screen,Urine Negative ng/mL (Cutoff=25)
[2021-08-22 15:29] LABS: Basophils % 0.1 %; Eosinophils % 0.1 %; Hematocrit 35.7 % (35.3-44.9); Hemoglobin 11.3 g/dL (11.5-15.4); Immature Granulocytes % 0.3 % (0-4); Lymphocytes # 1.8 K/mcL (0.6-4.6); Lymphocytes % 18.5 %; Mean Corpuscular HGB Conc 31.7 g/dL (31.6-35.5); Mean Corpuscular Hemoglobin 24.2 pg (28.0-33.3); Mean Corpuscular Volume 76.4 fL (83.0-100.0); Monocytes # 0.6 K/mcL (0.0-1.3); Monocytes % 6.3 %; Neutrophils # 7.4 K/mcL (1.6-8.9); Platelet Count 310 K/mcL (140-400); Red Blood Count 4.67 M/mcL (3.82-4.97); Red Cell Distribution Width 14.6 % (11.5-14.5); Segmented Neutrophils % 74.7 %; White Blood Count 9.9 K/mcL (4.3-11.1)
[2021-08-22 15:33] LABS: Influenza A PCR Negative (Negative); Influenza B PCR Negative (Negative); Resp. Syncytial Virus PCR Negative (Negative); SARS-CoV-2 by PCR (In House) Negative (Negative)
[2021-08-22] MEDS ORDERED: *HR* Ropivacaine/PF 0.5% 20 ML VIAL ONE (20:01)
[2021-08-22] MEDS ORDERED: Oxytocin 30 UNIT/503 ML BAG IVC ONE (22:29)
[2021-08-23] MEDS ORDERED: OXYTOCIN/RINGERS LACTATE 10 UNIT/166.6 ML BAG IVC ONE (00:25)
[2021-08-23] MEDS ORDERED: Ondansetron ODT 4 MG TAB.RAPDIS SL PRN (00:25)
[2021-08-23] MEDS ORDERED: Lanolin 7 G OINT...G. TP PRN (00:25)
[2021-08-23] MEDS: Ibuprofen 600 MG TABLET PO SCH ×4 (02:23→20:13)
[2021-08-23] MEDS: Benzocaine/Menthol 56 GM AEROSOL SPRAY TP PRN ×2 (02:24→15:03)
[2021-08-23 02:38] VITALS: O2SAT 98
[2021-08-23] MEDS ORDERED: *HR* Succinylcholine 200 MG/10 ML VIAL IVP ONE (07:02)
[2021-08-23] MEDS ORDERED: Lidocaine/EPI 1:200k 2% PF 20 ML VIAL ONE (07:02)
[2021-08-23] MEDS ORDERED: Acetaminophen IV 1,000 MG/100 ML BAG IVPB ONE (07:12)
[2021-08-23] MEDS ORDERED: Ketorolac 30 MG/ML VIAL ONE (07:12)
[2021-08-23] MEDS ORDERED: Ondansetron 4 MG/2 ML VIAL ONE (07:12)
[2021-08-23] MEDS ORDERED: *HR* Morphine Sulfate/PF 10 MG/10 ML AMPUL ONE (07:22)
[2021-08-23] MEDS ORDERED: *HR* Promethazine 25 MG/ML VIAL ONE (07:35)
[2021-08-23] MEDS: Acetaminophen 325 MG TABLET PO SCH ×2 (08:04→15:03)
[2021-08-23] MEDS ORDERED: Prenatal Vit/FA 1 EACH TABLET PO SCH (09:00)
[2021-08-23 16:19] LABS: Basophils % 0.2 %; Eosinophils % 0.3 %; Hematocrit 30.4 % (35.3-44.9); Immature Granulocytes % 0.5 % (0-4); Lymphocytes # 2.2 K/mcL (0.6-4.6); Mean Corpuscular HGB Conc 31.3 g/dL (31.6-35.5); Mean Corpuscular Hemoglobin 23.9 pg (28.0-33.3); Mean Corpuscular Volume 76.4 fL (83.0-100.0); Mean Platelet Volume 11.1 fL (9.4-12.4); Monocytes # 0.8 K/mcL (0.0-1.3); Monocytes % 7.6 %; Neutrophils # 7.8 K/mcL (1.6-8.9); Platelet Count 281 K/mcL (140-400); Red Blood Count 3.98 M/mcL (3.82-4.97); Red Cell Distribution Width 14.7 % (11.5-14.5); Segmented Neutrophils % 71.4 %; White Blood Count 10.9 K/mcL (4.3-11.1)
[2021-08-23 16:21] LABS: Hemoglobin 9.5 g/dL (11.5-15.4)
[2021-08-23 20:24] VITALS: BP 126/84; PULSE 79; TEMP 97.8
== END 2021-08-23 23:50 | disposition home or self-care (01) | DRG 807 ==
LOC: 1NENULAB → 1NENUOBS 08-23 01:36
PROVIDERS: ADMIT Obstetrics & Gynecology; ATTEND Obstetrics & Gynecology